=== PATIENT | female | born 1945 | race Two or more races ===

== ENCOUNTER 2019-07-25 12:18 | Inpatient (IN) | payer MEDICARE, OTHER ==
[~2019-07-25] VITALS: Ht 162.6 cm; Wt 103.0 kg
[2019-07-25 12:35] VITALS: BP 154/95
[2019-07-25] MEDS ORDERED: ACETAMINOPHEN325 M1 ORAL (12:40)
[2019-07-25] MEDS ORDERED: B-12 5,000 MCG1 EACH SL (12:40)
[2019-07-25] MEDS ORDERED: OS-CAL 500+D31 EAC1 PO (12:40)
[2019-07-25] MEDS ORDERED: MILK OF MA400 MG/51 ORAL (12:40)
--- NOTE | 2019-07-25 12:40 | NUR ---
ED Nurse Note: Patient was BIBA from [facility] due to fever 100.2, and hypertention. 650 Tylenol and 2000 mL of normal saline were given at the facility. Patient was placed on 2L via NC for comphort. Patient presented lethargic, AAO x1, due to Dementia. Patient has even, non-labored breathing,T 100.2, and O2 sat 92% on RA at bed suide.
--- NOTE | 2019-07-25 12:45 | NUR ---
ED Nurse Note: blood specimen collected seent down
[2019-07-25] MEDS ORDERED: Acetaminophen 650 MG SUPP RECTAL ONE (13:15)
[2019-07-25 13:22] LABS: HEMATOCRIT 48.6 % (37.0-47.0); HEMOGLOBIN 16.4 G/DL (12.0-16.0); MEAN CORPUSCULAR VOLUME 84 FL (80-99); PLATELET COUNT 231 K/UL (150-450); RED BLOOD COUNT 5.79 M/UL (4.20-5.40); WHITE BLOOD COUNT 21.4 K/UL (4.8-10.8)
[2019-07-25 13:23] LABS: ANION GAP 10 mmol/L (5-15); BLOOD UREA NITROGEN 19 mg/dL (7-18); CALCIUM 9.3 MG/DL (8.5-10.1); CARBON DIOXIDE 29 MMOL/L (21-32); CHLORIDE 102 MMOL/L (98-107); CREATININE 1.2 MG/DL (0.55-1.30); POTASSIUM 3.9 MMOL/L (3.5-5.1); SODIUM 141 MMOL/L (136-145)
[2019-07-25 13:34] LABS: ALANINE AMINOTRANSFERASE 23 U/L (12-78); ALBUMIN 3.7 G/DL (3.4-5.0); ALBUMIN/GLOBULIN RATIO 0.9 (1.0-2.7); ALKALINE PHOSPHATASE 127 U/L (46-116); ASPARTATE AMINO TRANSFERASE 17 U/L (15-37); BILIRUBIN,TOTAL 0.5 MG/DL (0.2-1.0)
[2019-07-25] MEDS ORDERED: Azithromycin 500 MG in NS 275 ML IV ONE (13:45)
[2019-07-25] MEDS ORDERED: Cefepime HCl 1 GM in D5W 55 ML IVPB ONE (13:45)
[2019-07-25 14:01] LABS: APPEARANCE,URINE SLIGHTLY CLOUDY; BILIRUBIN, URINE NEGATIVE (NEGATIVE); COLOR,URINE PALE YELLOW; GLUCOSE, URINE (UA) NEGATIVE (NEGATIVE); KETONES,URINE NEGATIVE (NEGATIVE); LEUKOCYTE ESTERASE ,URINE 1+ (NEGATIVE); NITRITE,URINE POSITIVE (NEGATIVE); PH,URINE 7 (4.5-8.0); PROTEIN,URINE 2+ (NEGATIVE); UROBILINOGEN,URINE NORMAL MG/DL (0.0-1.0)
--- NOTE | 2019-07-25 14:13 | Diagnostic Imaging Report ---
EXAM: XR Chest, 1 View CLINICAL HISTORY: SOB TECHNIQUE: Frontal view of the chest. COMPARISON: No relevant prior studies available. FINDINGS: There is pulmonary vascular congestion and suspected left pleural effusion. Heart is not well assessed due to adjacent opacity in rotation, but may be mildly enlarged. Heavily calcified aorta. Chronic right rib deformities. No pneumothorax. IMPRESSION: Pulmonary vascular congestion and suspected left pleural effusion.
[2019-07-25] MEDS ORDERED: levETIRAcetam 1,000mg/NS100ml 100 ML IVPB ONE (14:15)
[2019-07-25] MEDS ORDERED: LORazepam Inj 2mg/ml 1ml IV ONE (14:15)
--- NOTE | 2019-07-25 14:30 | Emergency Room Report ---
History of Present Illness General Chief Complaint: Fever Source: Patient, Medical Record, EMS Present Illness HPI 74-year-old female presents ED for evaluation. Brought in by EMS from [facility] facility. Had fever today. BP also elevated. Denies chest pain. EMS patient also appeared short of breath O2 sats were low 90s. Placed on oxygen for comfort. No other aggravating relieving factors. Denies any other associated symptoms Allergies: Coded Allergies: No Known Allergies (Unverified , 07/25/19) Patient History Past Medical History: none Past Surgical History: none Pertinent Family History: none Social History: Denies: smoking, alcohol use, drug use Now: No Immunizations: UTD Reviewed Nursing Documentation: PMH: Agreed; PSxH: Agreed Review of Systems All Other Systems: negative except mentioned in HPI Physical Exam Vital Signs Date Time Temp Pulse Resp B/P (MAP) Pulse Ox O2 Delivery O2 Flow Rate FiO2 07/25/19 12:18 100.2 118 16 154/95 (114) 98 Nasal Cannula 4.0 Sp02 EP Interpretation: reviewed, normal General Appearance: alert, GCS 15, non-toxic, mild distress Head: normocephalic, atraumatic Eyes: bilateral eye normal inspection, bilateral eye PERRL ENT: hearing grossly normal, normal pharynx, no angioedema, normal voice Neck: full range of motion, supple/symm/no masses Respiratory: chest non-tender, crackles, speaking full sentences Cardiovascular #1: regular rate, rhythm, no edema Cardiovascular #2: 2+ carotid (R), 2+ carotid (L), 2+ radial (R), 2+ radial (L) , 2+ dorsalis pedis (R), 2+ dorsalis pedis (L) Gastrointestinal: normal bowel sounds, non tender, soft, non-distended, no guarding, no rebound Rectal: deferred Genitourinary: normal inspection, no CVA tenderness Musculoskeletal: back normal, normal range of motion, gait/station normal, non- tender Neurologic: alert, motor strength/tone normal, oriented x3, sensory intact, responsive, speech normal Psychiatric: judgement/insight normal, memory normal, mood/affect normal, no suicidal/homicidal ideation Reflexes: 3+ bicep (R), 3+ bicep (L), 3+ tricep (R), 3+ tricep (L), 3+ knee (R) , 3+ knee (L) Skin: other - see nursing notes Lymphatic: no adenopathy Medical Decision Making Diagnostic Impression: Primary Impression: SOB (shortness of breath) Additional Impressions: Pleural effusion Fever Qualified Codes: R50.9 - Fever, unspecified UTI (urinary tract infection) Qualified Codes: N39.0 - Urinary tract infection, site not specified ER Course Hospital Course 74 yo F presents with SOB, fever from SNF Differential diagnoses include: Pneumonia, CHF exacerbation, pneumothorax, fluid overload Clinical course Patient placed on stretcher. On registered nurse cardiac with hypoxia on room air. After initial history and physical, I ordered nasal cannula. I ordered labs, IV fluids, EKG, chest x-ray, blood cultures, UA. Patient placed on nasal cannula with O2 saturation improving Labs - leukocytosis noted, hemoglobin/hematocrit stable, electrolytes okay, lactate okay, troponins negative, UA + bacteria CXR - L sided pleural effsuion EKG - sinus tachycardia no acute ischemic changes interpreted by me given broad spectrum abx. patient remains comfortable on oxygen Case discussed with Dr. Driver and he agreed to the patient to his service for further care and support I feel this is a highly complex case requiring extensive working including EKG/ Rhythm strip, Xray/CT/US, Blood/urine lab work, repeat exams while in ED, and administration of strong opiates/narcotics for pain control, admission to hospital or close patient follow up. Diagnosis - SOB, pleural efusion, Fever, UTI Patient admitted to telemetry in serious condition Labs Test 07/25/19 12:50 07/25/19 13:40 07/26/19 05:58 07/26/19 06:09 White Blood Count 21.4 K/UL (4.8-10.8) 13.0 K/UL (4.8-10.8) Red Blood Count 5.79 M/UL (4.20-5.40) 5.08 M/UL (4.20-5.40) Hemoglobin 16.4 G/DL (12.0-16.0) 14.4 G/DL (12.0-16.0) Hematocrit 48.6 % (37.0-47.0) 42.4 % (37.0-47.0) Mean Corpuscular Volume 84 FL (80-99) 84 FL (80-99) Mean Corpuscular Hemoglobin 28.4 PG (27.0-31.0) 28.3 PG (27.0-31.0) Mean Corpuscular Hemoglobin Concent 33.8 G/DL (32.0-36.0) 33.8 G/DL (32.0-36.0) Red Cell Distribution Width 13.0 % (11.6-14.8) 13.2 % (11.6-14.8) Platelet Count 231 K/UL (150-450) 193 K/UL (150-450) Mean Platelet Volume 7.2 FL (6.5-10.1) 6.4 FL (6.5-10.1) Neutrophils (%) (Auto) % (45.0-75.0) 83.7 % (45.0-75.0) Lymphocytes (%) (Auto) % (20.0-45.0) 10.5 % (20.0-45.0) Monocytes (%) (Auto) % (1.0-10.0) 5.3 % (1.0-10.0) Eosinophils (%) (Auto) % (0.0-3.0) 0.1 % (0.0-3.0) Basophils (%) (Auto) % (0.0-2.0) 0.4 % (0.0-2.0) Differential Total Cells Counted 100 Neutrophils % (Manual) 89 % (45-75) Lymphocytes % (Manual) 6 % (20-45) Monocytes % (Manual) 5 % (1-10) Eosinophils % (Manual) 0 % (0-3) Basophils % (Manual) 0 % (0-2) Band Neutrophils 0 % (0-8) Platelet Estimate Adequate Platelet Morphology Normal Red Blood Cell Morphology Normal Sodium Level 141 MMOL/L (136-145) 141 MMOL/L (136-145) Potassium Level 3.9 MMOL/L (3.5-5.1) 3.4 MMOL/L (3.5-5.1) Chloride Level 102 MMOL/L (98-107) 107 MMOL/L (98-107) Carbon Dioxide Level 29 MMOL/L (21-32) 26 MMOL/L (21-32) Anion Gap 10 mmol/L (5-15) 8 mmol/L (5-15) Blood Urea Nitrogen 19 mg/dL (7-18) 21 mg/dL (7-18) Creatinine 1.2 MG/DL (0.55-1.30) 0.9 MG/DL (0.55-1.30) Estimat Glomerular Filtration Rate mL/min (>60) mL/min (>60) Glucose Level 144 MG/DL (74-106) 106 MG/DL (74-106) Lactic Acid Level 1.60 mmol/L (0.4-2.0) Calcium Level 9.3 MG/DL (8.5-10.1) 8.6 MG/DL (8.5-10.1) Total Bilirubin 0.5 MG/DL (0.2-1.0) 0.6 MG/DL (0.2-1.0) Aspartate Amino Transf (AST/SGOT) 17 U/L (15-37) 15 U/L (15-37) Alanine Aminotransferase (ALT/SGPT) 23 U/L (12-78) 20 U/L (12-78) Alkaline Phosphatase 127 U/L (46-116) 96 U/L (46-116) Troponin I 0.039 ng/mL (0.000-0.056) Pro-B-Type Natriuretic Peptide 688 pg/mL (0-125) Total Protein 8.0 G/DL (6.4-8.2) 6.8 G/DL (6.4-8.2) Albumin 3.7 G/DL (3.4-5.0) 2.8 G/DL (3.4-5.0) Globulin 4.3 g/dL 4.0 g/dL Albumin/Globulin Ratio 0.9 (1.0-2.7) 0.7 (1.0-2.7) Urine Color Pale yellow Yellow Urine Appearance Slightly cloudy Clear Urine pH 7 (4.5-8.0) 5 (4.5-8.0) Urine Specific [place] 1.010 (1.005-1.035) 1.020 (1.005-1.035) Urine Protein 2+ (NEGATIVE) 2+ (NEGATIVE) Urine Glucose (UA) Negative (NEGATIVE) Negative (NEGATIVE) Urine Ketones Negative (NEGATIVE) 1+ (NEGATIVE) Urine Blood 5+ (NEGATIVE) 5+ (NEGATIVE) Urine Nitrite Positive (NEGATIVE) Negative (NEGATIVE) Urine Bilirubin Negative (NEGATIVE) Negative (NEGATIVE) Urine Urobilinogen Normal MG/DL (0.0-1.0) Normal MG/DL (0.0-1.0) Urine Leukocyte Esterase 1+ (NEGATIVE) 2+ (NEGATIVE) Urine RBC 5-10 /HPF (0 - 2) 5-10 /HPF (0 - 2) Urine WBC 5-10 /HPF (0 - 2) 5-10 /HPF (0 - 2) Urine Squamous Epithelial Cells Few /LPF (NONE/OCC) Few /LPF (NONE/OCC) Urine Bacteria Many /HPF (NONE) Few /HPF (NONE) EKG Diagnostic Results Rate: tachycardiac Rhythm: NSR ST Segments: no acute changes ASA given to the pt in ED: No Rhythm Strip Diag. Results EP Interpretation: yes Rhythm: NSR, no PVC's, no ectopy Chest X-Ray Diagnostic Results Chest X-Ray Diagnostic Results : Chest X-Ray Ordered: Yes # of Views/Limited/Complete: 1 View Indication: Shortness of Breath EP Interpretation: Yes Interpretation: no pneumothorax, other - L sided pleural effusion Impression: Other - pleural effusion Electronically Signed by: Electronically signed by Vimal Novak MD Last Vital Signs Date Time Temp Pulse Resp B/P (MAP) Pulse Ox O2 Delivery O2 Flow Rate FiO2 07/25/19 13:44 99.2 07/25/19 12:35 118 16 Nasal Cannula 2.0 07/25/19 12:35 154/95 98 Status: improved Disposition: ADMITTED INPATIENT Condition: Serious Referrals: Jose Driver DO (PCP) Vimal Novak MD Jul 25, 2019 14:30
[2019-07-25 14:31] VITALS: BP 144/80
[2019-07-25 15:16] VITALS: BP 137/87
--- NOTE | 2019-07-25 16:55 | NUR ---
ED Nurse Note: Patient was transfered to tele unit due to high fever, pleural efusion. Patient was transfered to the unit via gurney, by ACLS protocol, with all belongings. Patient AAO x2, due to dementia, VSS at this time.
--- NOTE | 2019-07-25 17:00 | NUR ---
NURSE NOTES: Report received from ARJUN Wisdom. Pt. came to the floor via gurney from ER. In 2L NC. AOx1. Complains of mid chest pain 10/19. IV flushed, SL. Belongings checked with Pt. and Nurse. Blue shirt, 2 purses and 16 dollars and 50 cents counted, signed and filed. Bed on lowest position, side rails upx2, brakes engaged, alarm on. Call light left within easy reach.
[2019-07-25] MEDS ORDERED: Miralax 17gm pkt ORAL PRN (17:15)
[2019-07-25] MEDS ORDERED: Morphine Sulfate 2mg/ml Inj(IV/IM USE ONLY) IVP PRN (17:15)
[2019-07-25] MEDS ORDERED: Albuterol/Ipratropium 3ml neb HHN PRN (17:15)
[2019-07-25] MEDS ORDERED: Vancomycin 1.25gm/NS Premix IVPB ONE (18:30)
[2019-07-25 20:00] VITALS: BP 114/61
--- NOTE | 2019-07-25 20:10 | NUR ---
NURSE NOTES: Received hand written report from ARJUN Mendez. Patient in bed resting. Patient confused oriented x1. Patient have to be frequently oriented. Can follow simple commands. No complaints of chest pain, no SOB noted. Patient on NC @2L saturating well. Will continue to monitor.
[2019-07-25] MEDS ORDERED: Cefepime HCl 2 GM in D5W 110 ML IV SCH (21:00)
[2019-07-25] MEDS: Heparin 5000 units/ml inj SUBQ SCH (21:52)
[2019-07-26] VITALS: BP 134/78
[2019-07-26] MEDS ORDERED: Vancomycin 1 GM in D5W 275 ML IV SCH (00:30)
[2019-07-26 07:04] LABS: APPEARANCE,URINE CLEAR; BILIRUBIN, URINE NEGATIVE (NEGATIVE); GLUCOSE, URINE (UA) NEGATIVE (NEGATIVE); KETONES,URINE 1+ (NEGATIVE); LEUKOCYTE ESTERASE ,URINE 2+ (NEGATIVE); NITRITE,URINE NEGATIVE (NEGATIVE); PH,URINE 5 (4.5-8.0); PROTEIN,URINE 2+ (NEGATIVE); UROBILINOGEN,URINE NORMAL MG/DL (0.0-1.0)
--- NOTE | 2019-07-26 07:20 | NUR ---
NURSE NOTES: Received report from ARJUN Delatorre. Pt. sleeping comfortably. In 2L NC. No S/S of distress noticed. Floor made free of clutter. Whiteboard updated. Bed on lowest position, side rails upx2, brakes engaged, alarm on. Call light within easy reach.
--- NOTE | 2019-07-26 07:32 | NUR ---
HAND-OFF: Report given to ARJUN Reeder. Patient in bed sleeping. Stable at Hand-off.
[2019-07-26 07:33] LABS: COLOR,URINE YELLOW
[2019-07-26 08:00] VITALS: BP 129/80
[2019-07-26 08:13] LABS: BASOPHILS % (AUTO) 0.4 % (0.0-2.0); EOSINOPHILS % (AUTO) 0.1 % (0.0-3.0); HEMATOCRIT 42.4 % (37.0-47.0); HEMOGLOBIN 14.4 G/DL (12.0-16.0); LYMPHOCYTES % (AUTO) 10.5 % (20.0-45.0); MEAN CORPUSCULAR VOLUME 84 FL (80-99); MONOCYTES % (AUTO) 5.3 % (1.0-10.0); NEUTROPHILS % (AUTO) 83.7 % (45.0-75.0); PLATELET COUNT 193 K/UL (150-450); RED BLOOD COUNT 5.08 M/UL (4.20-5.40); RED CELL DISTRIBUTION WIDTH 13.2 % (11.6-14.8)
--- NOTE | 2019-07-26 08:25 | Consultation ---
History of Present Illness General Chief Complaint: Fever Present Illness Allergies: Coded Allergies: No Known Allergies (Unverified , 07/25/19) Medication History Scheduled Magnesium Hydroxide* (Milk Of Magnesia*), 30 ML ORAL DAILY, (Reported) Scheduled PRN Acetaminophen* (Acetaminophen 325MG Tablet*), 650 MG ORAL Q4H PRN for Pain Scale (3-5), (Reported) Miscellaneous Medications Calcium Carbonate/Vitamin D3 (Os-Surendra 500+D3 Caplet), 1 EACH PO, (Reported) Cyanocobalamin/Cobamamide (B-12 5,000 Mcg Sublingual Tab), 2 EACH SL, (Reported) Patient History Healthcare decision maker Resuscitation status Full Code Advanced Directive on File Physical Exam Last 24 Hour Vital Signs Date Time Temp Pulse Resp B/P (MAP) Pulse Ox O2 Delivery O2 Flow Rate FiO2 07/26/19 04:00 106 07/26/19 00:00 109 07/26/19 00:00 96.5 111 21 134/78 (96) 94 07/25/19 21:00 Nasal Cannula 2.0 07/25/19 20:00 96.8 110 20 114/61 (78) 94 07/25/19 20:00 102 07/25/19 18:40 110 20 94 Nasal Cannula 2.0 28 07/25/19 18:40 94 Nasal Cannula 2.0 28 07/25/19 17:07 Nasal Cannula 2.0 07/25/19 16:55 98.9 108 15 137/87 100 Nasal Cannula 2.0 07/25/19 15:16 98.9 108 15 137/87 100 Nasal Cannula 2.0 07/25/19 14:31 99.2 115 16 144/80 98 Nasal Cannula 4.0 07/25/19 13:44 99.2 07/25/19 12:35 118 16 Nasal Cannula 2.0 07/25/19 12:35 100.2 16 154/95 98 Nasal Cannula 4.0 07/25/19 12:18 100.2 118 16 154/95 (114) 98 Nasal Cannula 4.0 Intake and Output 07/25/19 07/26/19 19:00 07:00 Intake Total 220 ml Output Total 850 ml 500 ml Balance -850 ml -280 ml Intake IV Total 220 ml Output Urine Total 850 ml 500 ml # Bowel Movements 2 Laboratory Tests Test 07/25/19 12:50 07/25/19 13:40 07/26/19 05:58 07/26/19 06:09 White Blood Count 21.4 K/UL (4.8-10.8) H 13.0 K/UL (4.8-10.8) H Red Blood Count 5.79 M/UL (4.20-5.40) H 5.08 M/UL (4.20-5.40) Hemoglobin 16.4 G/DL (12.0-16.0) H 14.4 G/DL (12.0-16.0) Hematocrit 48.6 % (37.0-47.0) H 42.4 % (37.0-47.0) Mean Corpuscular Volume 84 FL (80-99) 84 FL (80-99) Mean Corpuscular Hemoglobin 28.4 PG (27.0-31.0) 28.3 PG (27.0-31.0) Mean Corpuscular Hemoglobin Concent 33.8 G/DL (32.0-36.0) 33.8 G/DL (32.0-36.0) Red Cell Distribution Width 13.0 % (11.6-14.8) 13.2 % (11.6-14.8) Platelet Count 231 K/UL (150-450) 193 K/UL (150-450) Mean Platelet Volume 7.2 FL (6.5-10.1) 6.4 FL (6.5-10.1) L Neutrophils (%) (Auto) % (45.0-75.0) 83.7 % (45.0-75.0) H Lymphocytes (%) (Auto) % (20.0-45.0) 10.5 % (20.0-45.0) L Monocytes (%) (Auto) % (1.0-10.0) 5.3 % (1.0-10.0) Eosinophils (%) (Auto) % (0.0-3.0) 0.1 % (0.0-3.0) Basophils (%) (Auto) % (0.0-2.0) 0.4 % (0.0-2.0) Differential Total Cells Counted 100 Neutrophils % (Manual) 89 % (45-75) H Lymphocytes % (Manual) 6 % (20-45) L Monocytes % (Manual) 5 % (1-10) Eosinophils % (Manual) 0 % (0-3) Basophils % (Manual) 0 % (0-2) Band Neutrophils 0 % (0-8) Platelet Estimate Adequate Platelet Morphology Normal Red Blood Cell Morphology Normal Sodium Level 141 MMOL/L (136-145) Pending Potassium Level 3.9 MMOL/L (3.5-5.1) Pending Chloride Level 102 MMOL/L (98-107) Pending Carbon Dioxide Level 29 MMOL/L (21-32) Pending Anion Gap 10 mmol/L (5-15) Blood Urea Nitrogen 19 mg/dL (7-18) H Pending Creatinine 1.2 MG/DL (0.55-1.30) Pending Estimat Glomerular Filtration Rate mL/min (>60) Pending Glucose Level 144 MG/DL (74-106) H Pending Lactic Acid Level 1.60 mmol/L (0.4-2.0) Calcium Level 9.3 MG/DL (8.5-10.1) Pending Total Bilirubin 0.5 MG/DL (0.2-1.0) Pending Aspartate Amino Transf (AST/SGOT) 17 U/L (15-37) Pending Alanine Aminotransferase (ALT/SGPT) 23 U/L (12-78) Pending Alkaline Phosphatase 127 U/L (46-116) H Pending Troponin I 0.039 ng/mL (0.000-0.056) Pro-B-Type Natriuretic Peptide 688 pg/mL (0-125) H Total Protein 8.0 G/DL (6.4-8.2) Pending Albumin 3.7 G/DL (3.4-5.0) Pending Globulin 4.3 g/dL Pending Albumin/Globulin Ratio 0.9 (1.0-2.7) L Urine Color Pale yellow Yellow Urine Appearance Slightly cloudy Clear Urine pH 7 (4.5-8.0) 5 (4.5-8.0) Urine Specific [place] 1.010 (1.005-1.035) 1.020 (1.005-1.035) Urine Protein 2+ (NEGATIVE) H 2+ (NEGATIVE) H Urine Glucose (UA) Negative (NEGATIVE) Negative (NEGATIVE) Urine Ketones Negative (NEGATIVE) 1+ (NEGATIVE) H Urine Blood 5+ (NEGATIVE) H 5+ (NEGATIVE) H Urine Nitrite Positive (NEGATIVE) H Negative (NEGATIVE) Urine Bilirubin Negative (NEGATIVE) Negative (NEGATIVE) Urine Urobilinogen Normal MG/DL (0.0-1.0) Normal MG/DL (0.0-1.0) Urine Leukocyte Esterase 1+ (NEGATIVE) H 2+ (NEGATIVE) H Urine RBC 5-10 /HPF (0 - 2) H 5-10 /HPF (0 - 2) H Urine WBC 5-10 /HPF (0 - 2) H 5-10 /HPF (0 - 2) H Urine Squamous Epithelial Cells Few /LPF (NONE/OCC) Few /LPF (NONE/OCC) Urine Bacteria Many /HPF (NONE) H Few /HPF (NONE) Microbiology Date/Time Source Procedure Growth Status 07/25/19 12:50 Nasal Nares - Final Complete 07/25/19 12:50 Nasal Nares - Final Complete 07/25/19 13:30 Rectum Received Height (Feet): 5 Height (Inches): 4.00 Weight (Pounds): 130 Medications Current Medications Medications (Trade) Dose Ordered Sig/Katelynn Route PRN Reason Start Time Stop Time Status Last Admin Dose Admin Acetaminophen (Tylenol) 650 mg Q4H PRN ORAL T>100.5 07/25/19 17:15 08/24/19 17:14 Albuterol/ Ipratropium (Albuterol/ Ipratropium) 3 ml Q4H PRN HHN Shortness of Breath 07/25/19 17:15 07/30/19 17:14 Cefepime HCl 2 gm/ Dextrose 110 ml @ 220 mls/hr Q24H IV 07/25/19 21:00 08/01/19 20:59 07/25/19 21:50 Heparin Sodium (Porcine) (Heparin 5000 units/ml) 5,000 units EVERY 12 HOURS SUBQ 07/25/19 21:00 08/24/19 20:59 07/25/19 21:52 Morphine Sulfate (Morphine Sulfate) 2 mg Q4H PRN IVP PAIN 4-10 07/25/19 17:15 08/01/19 17:14 Ondansetron HCl (Zofran) 4 mg Q6H PRN IVP Nausea & Vomiting 07/25/19 17:15 08/24/19 17:14 Polyethylene Glycol (Miralax) 17 gm DAILYPRN PRN ORAL Constipation 07/25/19 17:15 08/24/19 17:14 Temazepam (Restoril) 15 mg HSPRN PRN ORAL Insomnia 07/25/19 21:00 08/01/19 20:59 Vancomycin HCl (Vanco rx to dose) 1 ea DAILY PRN MISC . 07/25/19 17:30 08/24/19 17:29 Vancomycin HCl 750 mg/Sodium Chloride 275 ml @ 183.333 mls/hr Q24H IVPB 07/26/19 18:00 07/31/19 17:59 Assessment/Plan Problem List: (1) Sepsis ICD Codes: A41.9 - Sepsis, unspecified organism SNOMED: 00250755 (2) Pleural effusion ICD Codes: J90 - Pleural effusion, not elsewhere classified SNOMED: 35335923 (3) History of cerebrovascular accident ICD Codes: Z86.73 - Personal history of transient ischemic attack (TIA), and cerebral infarction without residual deficits SNOMED: 066755545 (4) Alzheimer's dementia ICD Codes: G30.9 - Alzheimer's disease, unspecified; F02.80 - Dementia in other diseases classified elsewhere without behavioral disturbance SNOMED: 11292933 (5) Past use of tobacco ICD Codes: Z87.891 - Personal history of nicotine dependence SNOMED: 622449785 Assessment/Plan: boyd culture iv abx check wbc electrolytes US of chest respiratory treatment symptomatic treatment dvt prophylaxis. Alec Glasgow MD Jul 26, 2019 08:25
[2019-07-26 08:34] LABS: ALANINE AMINOTRANSFERASE 20 U/L (12-78); ALBUMIN 2.8 G/DL (3.4-5.0); ALBUMIN/GLOBULIN RATIO 0.7 (1.0-2.7); ALKALINE PHOSPHATASE 96 U/L (46-116); ANION GAP 8 mmol/L (5-15); ASPARTATE AMINO TRANSFERASE 15 U/L (15-37); BILIRUBIN,TOTAL 0.6 MG/DL (0.2-1.0); BLOOD UREA NITROGEN 21 mg/dL (7-18); CALCIUM 8.6 MG/DL (8.5-10.1); CARBON DIOXIDE 26 MMOL/L (21-32); CHLORIDE 107 MMOL/L (98-107); CREATININE 0.9 MG/DL (0.55-1.30); POTASSIUM 3.4 MMOL/L (3.5-5.1); SODIUM 141 MMOL/L (136-145)
[2019-07-26] MEDS: Heparin 5000 units/ml inj SUBQ SCH ×2 (08:44→20:56)
--- NOTE | 2019-07-26 13:07 | Consultation ---
History of Present Illness General Date patient seen: Jul 26, 2019 Chief Complaint: Fever Present Illness HPI 74 y/o F with hx of SNF resident presented to ED on 07/25 with fever, elevated blood pressure, Sat in the low 90s Denied chest pain Allergies: Coded Allergies: No Known Allergies (Unverified , 07/25/19) Medication History Scheduled Magnesium Hydroxide* (Milk Of Magnesia*), 30 ML ORAL DAILY, (Reported) Scheduled PRN Acetaminophen* (Acetaminophen 325MG Tablet*), 650 MG ORAL Q4H PRN for Pain Scale (3-5), (Reported) Miscellaneous Medications Calcium Carbonate/Vitamin D3 (Os-Surendra 500+D3 Caplet), 1 EACH PO, (Reported) Cyanocobalamin/Cobamamide (B-12 5,000 Mcg Sublingual Tab), 2 EACH SL, (Reported) Patient History Healthcare decision maker Resuscitation status Full Code Advanced Directive on File Patient History Narrative Pmhx: as above Shx: Denies: smoking, alcohol use, drug use Fhx: non contributory Review of Systems All Other Systems: negative except mentioned in HPI Physical Exam Physical Exam Narrative General Appearance: alert, mild distress Head: normocephalic, atraumatic Eyes: bilateral eye normal inspection, bilateral eye PERRL ENT: hearing grossly normal, normal pharynx, no angioedema, normal voice Neck: full range of motion, supple/symm/no masses Respiratory: chest non-tender, crackles, speaking full sentences Cardiovascular : regular rate, rhythm, no edema Gastrointestinal: normal bowel sounds, non tender, soft, non-distended, no guarding, no rebound Last 24 Hour Vital Signs Date Time Temp Pulse Resp B/P (MAP) Pulse Ox O2 Delivery O2 Flow Rate FiO2 07/26/19 09:00 Nasal Cannula 2.0 07/26/19 08:02 94 Nasal Cannula 2.0 28 07/26/19 08:02 106 20 95 Nasal Cannula 2.0 28 07/26/19 08:00 97.9 107 20 129/80 (96) 94 07/26/19 08:00 102 07/26/19 04:00 106 07/26/19 00:00 109 07/26/19 00:00 96.5 111 21 134/78 (96) 94 07/25/19 21:00 Nasal Cannula 2.0 12/14/19 20:00 96.8 110 20 114/61 (78) 94 07/25/19 20:00 102 07/25/19 18:40 110 20 94 Nasal Cannula 2.0 28 07/25/19 18:40 94 Nasal Cannula 2.0 28 07/25/19 17:07 Nasal Cannula 2.0 07/25/19 16:55 98.9 108 15 137/87 100 Nasal Cannula 2.0 07/25/19 15:16 98.9 108 15 137/87 100 Nasal Cannula 2.0 07/25/19 14:31 99.2 115 16 144/80 98 Nasal Cannula 4.0 07/25/19 13:44 99.2 Intake and Output 07/25/19 07/26/19 19:00 07:00 Intake Total 220 ml Output Total 850 ml 500 ml Balance -850 ml -280 ml Intake IV Total 220 ml Output Urine Total 850 ml 500 ml # Bowel Movements 2 Laboratory Tests Test 07/25/19 13:40 07/26/19 05:58 07/26/19 06:09 Urine Color Pale yellow Yellow Urine Appearance Slightly cloudy Clear Urine pH 7 (4.5-8.0) 5 (4.5-8.0) Urine Specific [place] 1.010 (1.005-1.035) 1.020 (1.005-1.035) Urine Protein 2+ (NEGATIVE) H 2+ (NEGATIVE) H Urine Glucose (UA) Negative (NEGATIVE) Negative (NEGATIVE) Urine Ketones Negative (NEGATIVE) 1+ (NEGATIVE) H Urine Blood 5+ (NEGATIVE) H 5+ (NEGATIVE) H Urine Nitrite Positive (NEGATIVE) H Negative (NEGATIVE) Urine Bilirubin Negative (NEGATIVE) Negative (NEGATIVE) Urine Urobilinogen Normal MG/DL (0.0-1.0) Normal MG/DL (0.0-1.0) Urine Leukocyte Esterase 1+ (NEGATIVE) H 2+ (NEGATIVE) H Urine RBC 5-10 /HPF (0 - 2) H 5-10 /HPF (0 - 2) H Urine WBC 5-10 /HPF (0 - 2) H 5-10 /HPF (0 - 2) H Urine Squamous Epithelial Cells Few /LPF (NONE/OCC) Few /LPF (NONE/OCC) Urine Bacteria Many /HPF (NONE) H Few /HPF (NONE) White Blood Count 13.0 K/UL (4.8-10.8) H Red Blood Count 5.08 M/UL (4.20-5.40) Hemoglobin 14.4 G/DL (12.0-16.0) Hematocrit 42.4 % (37.0-47.0) Mean Corpuscular Volume 84 FL (80-99) Mean Corpuscular Hemoglobin 28.3 PG (27.0-31.0) Mean Corpuscular Hemoglobin Concent 33.8 G/DL (32.0-36.0) Red Cell Distribution Width 13.2 % (11.6-14.8) Platelet Count 193 K/UL (150-450) Mean Platelet Volume 6.4 FL (6.5-10.1) L Neutrophils (%) (Auto) 83.7 % (45.0-75.0) H Lymphocytes (%) (Auto) 10.5 % (20.0-45.0) L Monocytes (%) (Auto) 5.3 % (1.0-10.0) Eosinophils (%) (Auto) 0.1 % (0.0-3.0) Basophils (%) (Auto) 0.4 % (0.0-2.0) Sodium Level 141 MMOL/L (136-145) Potassium Level 3.4 MMOL/L (3.5-5.1) L Chloride Level 107 MMOL/L (98-107) Carbon Dioxide Level 26 MMOL/L (21-32) Anion Gap 8 mmol/L (5-15) Blood Urea Nitrogen 21 mg/dL (7-18) H Creatinine 0.9 MG/DL (0.55-1.30) Estimat Glomerular Filtration Rate mL/min (>60) Glucose Level 106 MG/DL (74-106) Calcium Level 8.6 MG/DL (8.5-10.1) Total Bilirubin 0.6 MG/DL (0.2-1.0) Aspartate Amino Transf (AST/SGOT) 15 U/L (15-37) Alanine Aminotransferase (ALT/SGPT) 20 U/L (12-78) Alkaline Phosphatase 96 U/L (46-116) Total Protein 6.8 G/DL (6.4-8.2) Albumin 2.8 G/DL (3.4-5.0) L Globulin 4.0 g/dL Albumin/Globulin Ratio 0.7 (1.0-2.7) L Microbiology Date/Time Source Procedure Growth Status 07/25/19 13:40 Urine,Clean Catch Urine Culture - Preliminary Gram Negative Bacillus 1 Resulted 07/25/19 13:30 Rectum Received Height (Feet): 5 Height (Inches): 4.00 Weight (Pounds): 130 Medications Current Medications Medications (Trade) Dose Ordered Sig/Katelynn Route PRN Reason Start Time Stop Time Status Last Admin Dose Admin Acetaminophen (Tylenol) 650 mg Q4H PRN ORAL T>100.5 07/25/19 17:15 08/24/19 17:14 Albuterol/ Ipratropium (Albuterol/ Ipratropium) 3 ml Q4H PRN HHN Shortness of Breath 07/25/19 17:15 07/30/19 17:14 Cefepime HCl 2 gm/ Dextrose 110 ml @ 220 mls/hr Q24H IV 07/25/19 21:00 08/01/19 20:59 07/25/19 21:50 Heparin Sodium (Porcine) (Heparin 5000 units/ml) 5,000 units EVERY 12 HOURS SUBQ 07/25/19 21:00 08/24/19 20:59 07/26/19 08:44 Morphine Sulfate (Morphine Sulfate) 2 mg Q4H PRN IVP PAIN 4-10 07/25/19 17:15 08/01/19 17:14 Ondansetron HCl (Zofran) 4 mg Q6H PRN IVP Nausea & Vomiting 07/25/19 17:15 08/24/19 17:14 Polyethylene Glycol (Miralax) 17 gm DAILYPRN PRN ORAL Constipation 07/25/19 17:15 08/24/19 17:14 Temazepam (Restoril) 15 mg HSPRN PRN ORAL Insomnia 07/25/19 21:00 08/01/19 20:59 Vancomycin HCl (Vanco rx to dose) 1 ea DAILY PRN MISC . 07/25/19 17:30 08/24/19 17:29 Vancomycin HCl 750 mg/Sodium Chloride 275 ml @ 183.333 mls/hr Q24H IVPB 07/26/19 18:00 07/31/19 17:59 Assessment/Plan Assessment/Plan: Abx: IV Vancomycin 07/25- Cefepime 07/25- Azithromycin x1 07/25 Assessment: Sepsis UTI -u/a wbc 15-20, nit +, leuk +1; ucx >100k GNR Fever; improving Leukocytosis, improving -influenza sc neg -CXR: Pulmonary vascular congestion and suspected left pleural effusion. -Bcx p TODD, improving [facility] resident Plan: -Continue empiric IV Vancomycin #2 pending Bcx -Continue empiric Cefepime #2 pending ucx -f/u cx -Monitor CBC/CMP, temperatures -aspiration precautions Thank you for this consultation. Will continue to follow along with you. Discussed with Ernestina Noriega M.D. Jul 26, 2019 13:07
--- NOTE | 2019-07-26 15:15 | History and Physical Report ---
DATE OF ADMISSION: 07/25/2019 DATE AND TIME SEEN: 07/26/2019 at 9 a.m. CONSULTANTS: 1. Felix Kruger M.D. 2. Alec Glasgow M.D. 3. Ruslan Bey M.D. CHIEF COMPLAINT: Weakness, shortness of breath, UTI, sepsis, and hypertension. BRIEF HISTORY: This is a 74-year-old female from [facility], who presented with above-mentioned diagnosis, was admitted for weakness, urinary tract infection, sepsis, hypertensive urgency, chest pain, hypoxia, and leg cellulitis. Currently calm in bed, slight short of breath. No complaint. REVIEW OF SYSTEMS: No chest pain. Slight short of breath. No nausea, vomiting, or diarrhea. PAST MEDICAL HISTORY: Obesity, history of CVA, Alzheimer's. PAST SURGICAL HISTORY: None. ALLERGIES: Denies. MEDICATIONS: Include vancomycin, cefepime, heparin, temazepam, albuterol, Tylenol, morphine, Zofran, , and lorazepam. SOCIAL HISTORY: Positive smoking. No alcohol. No intravenous drug abuse. FAMILY HISTORY: Noncontributory. PHYSICAL EXAMINATION: GENERAL: Calm in bed, oriented x2, in no acute distress. VITAL SIGNS: Temperature is 97, pulse 107, respirations 20, and blood pressure 129/80. CARDIOVASCULAR: No murmur. LUNGS: Poor air exchange. ABDOMEN: Bowel sounds distant. EXTREMITIES: No cyanosis or edema. LABORATORY AND DIAGNOSTIC DATA: Labs at this time show white count 13, otherwise CBC is normal. BMP shows potassium 3.4, BUN 21, albumin 2.8, otherwise normal. Urinalysis shows 2+ leukocyte esterase. ASSESSMENT: 1. Urinary tract infection. 2. Sepsis. 3. Hypertensive urgency. 4. Chest pain. 5. Malnutrition. 6. Hypoxia. 7. Leg cellulitis. 8. CVA. 9. Alzheimer's. PLAN: 1. O2 and pulmonary treatment. 2. Antibiotics per Infectious Disease. 3. Blood pressure and pain control. 4. Dietary followup. 5. PT and dietary evaluation. 6. Check labs in the morning. 7. We will continue to follow this patient. 8. Cardiology, Pulmonary and ID followup. Jose Driver D.O. DR: JACI JOB#: [id number] CC:
--- NOTE | 2019-07-26 17:18 | NUR ---
NURSE NOTES: Left a note to Dr. Rankin regarding Patients LLE redness.
[2019-07-26] MEDS ORDERED: Vancomycin 750 MG in NS 275 ML IVPB SCH (18:00)
[2019-07-26] MEDS ORDERED: Vancomycin 750mg/NS 275ml IVPB SCH ×2 (18:00)
--- NOTE | 2019-07-26 18:30 | NUR ---
TRANSFER TO FLOOR: Patient transferred to [facility], per Dr Glasgow. Report given to ARJUN Gill. Belongings and medications given to RN. Patient in stable condition. Plan of care endorsed.
--- NOTE | 2019-07-26 18:32 | NUR ---
NURSE NOTES: Received pt from tele, pt awake, A/O x 2-3, calm. denies pain, no SOB noted, belongings with pt, no home meds, ochoa in place, draining clean yellow urine, LLE redness, warm to touch, pts on IV abx, tolerating diet, call light within reach, bed in low position, bed alarm on, notified RT regarding pts needs to be on 2L O2, fall precaution maintained. will continue to monitor.
[2019-07-26] MEDS ORDERED: Albuterol/Ipratropium 3ml neb HHN PRN (19:00)
[2019-07-26] MEDS ORDERED: Morphine Sulfate 2mg/ml Inj(IV/IM USE ONLY) IVP PRN (19:00)
[2019-07-26 20:00] VITALS: BP 130/74
--- NOTE | 2019-07-26 20:00 | NUR ---
NURSE NOTES: Received pt in bed. pt awake, A/O x 2-3 on nasal canula 2ml/min. no s/s of respiratory distress noted. Navarro catheter via gravity, draining clean yellow urine. on LLE redness, warm to touch and notified to call light within reach. bed is the lowest position and alarmed on. will continue to provide plan of care.
[2019-07-26] MEDS ORDERED: Cefepime HCl 2 GM in D5W 110 ML IV SCH (21:00)
[2019-07-27] VITALS: BP 124/86
[2019-07-27 04:00] VITALS: BP 106/68
[2019-07-27 07:23] LABS: BASOPHILS % (AUTO) 0.5 % (0.0-2.0); EOSINOPHILS % (AUTO) 3.1 % (0.0-3.0); HEMATOCRIT 42.7 % (37.0-47.0); HEMOGLOBIN 14.3 G/DL (12.0-16.0); LYMPHOCYTES % (AUTO) 18.7 % (20.0-45.0); MEAN CORPUSCULAR VOLUME 85 FL (80-99); MONOCYTES % (AUTO) 9.2 % (1.0-10.0); NEUTROPHILS % (AUTO) 68.5 % (45.0-75.0); PLATELET COUNT 186 K/UL (150-450); RED BLOOD COUNT 5.05 M/UL (4.20-5.40); RED CELL DISTRIBUTION WIDTH 13.4 % (11.6-14.8); WHITE BLOOD COUNT 7.5 K/UL (4.8-10.8)
--- NOTE | 2019-07-27 07:47 | NUR ---
HAND-OFF: Report given to Dc DÍAZ.
--- NOTE | 2019-07-27 07:59 | NUR ---
NURSE NOTES: Patient awake, alert x2, confused and forget-full; on nasal cannula 2 Liter, no sing of distress and shortness of breath; no sing of chest pain; IV Right For-arm 20G TKO and Left For-Arm. Navarro in place, drains urine; side rails up x2, breaks engaged, bed at lowest position, bed alarm on; call light and bed side table within reach; will keep monitoring.
[2019-07-27 08:00] LABS: ALANINE AMINOTRANSFERASE 20 U/L (12-78); ALBUMIN 2.8 G/DL (3.4-5.0); ALBUMIN/GLOBULIN RATIO 0.7 (1.0-2.7); ALKALINE PHOSPHATASE 93 U/L (46-116); ANION GAP 8 mmol/L (5-15); ASPARTATE AMINO TRANSFERASE 16 U/L (15-37); BILIRUBIN,TOTAL 0.3 MG/DL (0.2-1.0); BLOOD UREA NITROGEN 16 mg/dL (7-18); CALCIUM 8.8 MG/DL (8.5-10.1); CARBON DIOXIDE 27 MMOL/L (21-32); CHLORIDE 107 MMOL/L (98-107); CREATININE 0.8 MG/DL (0.55-1.30); POTASSIUM 3.6 MMOL/L (3.5-5.1); SODIUM 142 MMOL/L (136-145)
[2019-07-27] MEDS: Heparin 5000 units/ml inj SUBQ SCH ×2 (08:24→21:09)
--- NOTE | 2019-07-27 09:26 | General Progress Note ---
Assessment/Plan Problem List: (1) HTN (hypertension) ICD Codes: I10 - Essential (primary) hypertension SNOMED: 60750074 (2) Cellulitis of left ankle ICD Codes: L03.116 - Cellulitis of left lower limb SNOMED: 55467231167852833 (3) History of cerebrovascular accident ICD Codes: Z86.73 - Personal history of transient ischemic attack (TIA), and cerebral infarction without residual deficits SNOMED: 750522121 (4) SOB (shortness of breath) ICD Codes: R06.02 - Shortness of breath SNOMED: 785092804 (5) UTI (urinary tract infection) ICD Codes: N39.0 - Urinary tract infection, site not specified SNOMED: 84862259 Qualifiers: Qualified Codes: N39.0 - Urinary tract infection, site not specified (6) Fever ICD Codes: R50.9 - Fever, unspecified SNOMED: 619747370 Qualifiers: Qualified Codes: R50.9 - Fever, unspecified (7) Pleural effusion ICD Codes: J90 - Pleural effusion, not elsewhere classified SNOMED: 08118241 (8) Alzheimer's dementia ICD Codes: G30.9 - Alzheimer's disease, unspecified; F02.80 - Dementia in other diseases classified elsewhere without behavioral disturbance SNOMED: 08255146 (9) Past use of tobacco ICD Codes: Z87.891 - Personal history of nicotine dependence SNOMED: 005006419 (10) Sepsis ICD Codes: A41.9 - Sepsis, unspecified organism SNOMED: 40604844 Status: unchanged Assessment/Plan: pt diet abx cardio eval cbc bmp am aru eval Subjective Constitutional: Reports: weakness Allergies: Coded Allergies: No Known Allergies (Unverified , 07/25/19) All Systems: reviewed and negative except above Subjective sl sob Objective Last 24 Hour Vital Signs Date Time Temp Pulse Resp B/P (MAP) Pulse Ox O2 Delivery O2 Flow Rate FiO2 07/27/19 04:00 98.6 96 106/68 (81) 07/27/19 00:00 98.3 102 124/86 (99) 07/26/19 21:09 99 20 94 Room Air 21 07/26/19 21:03 94 Room Air 21 07/26/19 21:00 Nasal Cannula 2.0 07/26/19 20:00 98.2 98 130/74 (92) 07/26/19 16:00 88 07/26/19 12:00 81 Intake and Output 07/26/19 07/27/19 19:00 07:00 Intake Total 300 ml 40 ml Output Total 600 ml 800 ml Balance -300 ml -760 ml Intake Oral 300 ml Other 40 ml Output Urine Total 600 ml 800 ml # Voids 1 # Bowel Movements 3 1 Laboratory Tests 07/27/19 06:22: White Blood Count 7.5, Red Blood Count 5.05, Hemoglobin 14.3, Hematocrit 42.7, Mean Corpuscular Volume 85, Mean Corpuscular Hemoglobin 28.3, Mean Corpuscular Hemoglobin Concent 33.4, Red Cell Distribution Width 13.4, Platelet Count 186, Mean Platelet Volume 6.8, Neutrophils (%) (Auto) 68.5, Lymphocytes (%) (Auto) 18.7L, Monocytes (%) (Auto) 9.2, Eosinophils (%) (Auto) 3.1H, Basophils (%) ( Auto) 0.5, Sodium Level 142, Potassium Level 3.6, Chloride Level 107, Carbon Dioxide Level 27, Anion Gap 8, Blood Urea Nitrogen 16, Creatinine 0.8, Estimat Glomerular Filtration Rate , Glucose Level 107H, Calcium Level 8.8, Total Bilirubin 0.3, Aspartate Amino Transf (AST/SGOT) 16, Alanine Aminotransferase ( ALT/SGPT) 20, Alkaline Phosphatase 93, Pro-B-Type Natriuretic Peptide 269H, Total Protein 7.0, Albumin 2.8L, Globulin 4.2, Albumin/Globulin Ratio 0.7L Height (Feet): 5 Height (Inches): 4.00 Weight (Pounds): 130 General Appearance: lethargic EENT: normal ENT inspection Neck: normal alignment Cardiovascular: normal peripheral pulses, normal rate, regular rhythm Respiratory/Chest: chest wall non-tender, lungs clear, normal breath sounds Abdomen: normal bowel sounds, non tender, soft Extremities: normal inspection Edema: no edema noted Arm (L), no edema noted Arm (R), no edema noted Leg (L), no edema noted Leg (R), no edema noted Pedal (L), no edema noted Pedal (R), no edema noted Generalized Neurologic: responsive, motor weakness Skin: normal pigmentation, warm/dry Objective left ankle sl Jose Carreno DO Jul 27, 2019 09:26
--- NOTE | 2019-07-27 11:29 | Infectious Diseases Prog Note ---
Assessment/Plan Assessment/Plan Abx: IV Vancomycin 07/25- Cefepime 07/25- Azithromycin x1 07/25 Assessment: Sepsis UTI -u/a wbc 15-20, nit +, leuk +1; ucx >100k GNR Fever - resolved Leukocytosis, Resolved -influenza sc neg -CXR: Pulmonary vascular congestion and suspected left pleural effusion. -Bcx p TODD, improving SNF resident Plan: Start Ancef #1/5 On D/C could switch to PO Keflex 500mg BID to finish the course - 07/27/19 SP IV Vancomycin #3 and Cefepime #3 -f/u cx -Monitor CBC/CMP, temperatures -aspiration precautions Thank you for this consultation. Will continue to follow along with you. Subjective Allergies: Coded Allergies: No Known Allergies (Unverified , 07/25/19) Subjective Afebrile Leukocytosis resolved Objective Vital Signs Last 24 Hour Vital Signs Date Time Temp Pulse Resp B/P (MAP) Pulse Ox O2 Delivery O2 Flow Rate FiO2 07/27/19 09:00 Nasal Cannula 2.0 07/27/19 04:00 98.6 96 106/68 (81) 07/27/19 00:00 98.3 102 124/86 (99) 07/26/19 21:09 99 20 94 Room Air 21 07/26/19 21:03 94 Room Air 21 07/26/19 21:00 Nasal Cannula 2.0 07/26/19 20:00 98.2 98 130/74 (92) 07/26/19 16:00 88 07/26/19 12:00 81 Height (Feet): 5 Height (Inches): 4.00 Weight (Pounds): 130 Objective General Appearance: NAD Head: normocephalic, atraumatic, MMM, EOMI Respiratory: chest non-tender, crackles, speaking full sentences Cardiovascular : regular rate, rhythm, no edema Gastrointestinal: normal bowel sounds, non tender, soft, non-distended Microbiology Date/Time Source Procedure Growth Status 07/25/19 17:45 Blood Blood Culture - Preliminary NO GROWTH AFTER 24 HOURS Resulted 07/25/19 17:30 Blood Blood Culture - Preliminary NO GROWTH AFTER 24 HOURS Resulted 07/25/19 12:50 Blood Blood Culture - Preliminary NO GROWTH AFTER 24 HOURS Resulted 07/25/19 12:15 Blood Blood Culture - Preliminary NO GROWTH AFTER 24 HOURS Resulted 07/25/19 12:50 Nasal Nares - Final Complete 07/25/19 12:50 Nasal Nares - Final Complete 07/25/19 13:40 Urine,Clean Catch Urine Culture - Final Klebsiella Pneumoniae Complete 07/25/19 13:30 Rectum Received Laboratory Tests Test 07/27/19 06:22 White Blood Count 7.5 K/UL (4.8-10.8) Red Blood Count 5.05 M/UL (4.20-5.40) Hemoglobin 14.3 G/DL (12.0-16.0) Hematocrit 42.7 % (37.0-47.0) Mean Corpuscular Volume 85 FL (80-99) Mean Corpuscular Hemoglobin 28.3 PG (27.0-31.0) Mean Corpuscular Hemoglobin Concent 33.4 G/DL (32.0-36.0) Red Cell Distribution Width 13.4 % (11.6-14.8) Platelet Count 186 K/UL (150-450) Mean Platelet Volume 6.8 FL (6.5-10.1) Neutrophils (%) (Auto) 68.5 % (45.0-75.0) Lymphocytes (%) (Auto) 18.7 % (20.0-45.0) L Monocytes (%) (Auto) 9.2 % (1.0-10.0) Eosinophils (%) (Auto) 3.1 % (0.0-3.0) H Basophils (%) (Auto) 0.5 % (0.0-2.0) Sodium Level 142 MMOL/L (136-145) Potassium Level 3.6 MMOL/L (3.5-5.1) Chloride Level 107 MMOL/L (98-107) Carbon Dioxide Level 27 MMOL/L (21-32) Anion Gap 8 mmol/L (5-15) Blood Urea Nitrogen 16 mg/dL (7-18) Creatinine 0.8 MG/DL (0.55-1.30) Estimat Glomerular Filtration Rate mL/min (>60) Glucose Level 107 MG/DL (74-106) H Calcium Level 8.8 MG/DL (8.5-10.1) Total Bilirubin 0.3 MG/DL (0.2-1.0) Aspartate Amino Transf (AST/SGOT) 16 U/L (15-37) Alanine Aminotransferase (ALT/SGPT) 20 U/L (12-78) Alkaline Phosphatase 93 U/L (46-116) Pro-B-Type Natriuretic Peptide 269 pg/mL (0-125) H Total Protein 7.0 G/DL (6.4-8.2) Albumin 2.8 G/DL (3.4-5.0) L Globulin 4.2 g/dL Albumin/Globulin Ratio 0.7 (1.0-2.7) L Current Medications Medications (Trade) Dose Ordered Sig/Katelynn Route PRN Reason Start Time Stop Time Status Last Admin Dose Admin Acetaminophen (Tylenol) 650 mg Q4H PRN ORAL T>100.5 07/26/19 19:00 08/24/19 18:59 Albuterol/ Ipratropium (Albuterol/ Ipratropium) 3 ml Q4H PRN HHN Shortness of Breath 07/26/19 19:00 07/30/19 18:59 Cefepime HCl 2 gm/ Dextrose 110 ml @ 220 mls/hr Q24H IV 07/26/19 21:00 08/01/19 20:59 07/26/19 20:55 Heparin Sodium (Porcine) (Heparin 5000 units/ml) 5,000 units EVERY 12 HOURS SUBQ 07/26/19 21:00 08/24/19 20:59 07/27/19 08:24 Morphine Sulfate (Morphine Sulfate) 2 mg Q4H PRN IVP PAIN 4-10 07/26/19 19:00 08/01/19 18:59 Ondansetron HCl (Zofran) 4 mg Q6H PRN IVP Nausea & Vomiting 07/26/19 19:00 08/24/19 18:59 Polyethylene Glycol (Miralax) 17 gm DAILYPRN PRN ORAL Constipation 07/27/19 19:00 08/24/19 18:59 Temazepam (Restoril) 15 mg HSPRN PRN ORAL Insomnia 07/26/19 21:00 08/01/19 20:59 Vancomycin HCl (Vanco rx to dose) 1 ea DAILY PRN MISC . 07/26/19 19:00 08/25/19 18:59 Vancomycin HCl 750 mg/Sodium Chloride 275 ml @ 183.333 mls/hr Q24H IVPB 07/26/19 18:00 07/31/19 17:59 07/27/19 00:28 José Klein MD Jul 27, 2019 11:29
--- NOTE | 2019-07-27 13:26 | Pulmonology Progress Note ---
Assessment/Plan Problems: (1) Sepsis (2) Pleural effusion (3) History of cerebrovascular accident (4) Alzheimer's dementia (5) Past use of tobacco Assessment/Plan wbc better boyd culture iv abx check wbc electrolytes US of chest pending respiratory treatment symptomatic treatment dvt prophylaxis. Subjective ROS Limited/Unobtainable: No Interval Events: doing better Allergies: Coded Allergies: No Known Allergies (Unverified , 07/25/19) Objective Last 24 Hour Vital Signs Date Time Temp Pulse Resp B/P (MAP) Pulse Ox O2 Delivery O2 Flow Rate FiO2 07/27/19 09:00 Nasal Cannula 2.0 07/27/19 04:00 98.6 96 106/68 (81) 07/27/19 00:00 98.3 102 124/86 (99) 07/26/19 21:09 99 20 94 Room Air 21 07/26/19 21:03 94 Room Air 21 07/26/19 21:00 Nasal Cannula 2.0 07/26/19 20:00 98.2 98 130/74 (92) 07/26/19 16:00 88 Intake and Output 07/26/19 07/27/19 18:59 06:59 Intake Total 300 ml 40 ml Output Total 600 ml 800 ml Balance -300 ml -760 ml Intake Oral 300 ml Other 40 ml Output Urine Total 600 ml 800 ml # Voids 1 # Bowel Movements 3 1 General Appearance: WD/WN HEENT: normocephalic, atraumatic Respiratory/Chest: chest wall non-tender, lungs clear Breasts: no masses Cardiovascular: regular rhythm Abdomen: normal bowel sounds, no organomegaly, no scars Extremities: no clubbing Skin: no rash Microbiology Date/Time Source Procedure Growth Status 07/25/19 17:45 Blood Blood Culture - Preliminary NO GROWTH AFTER 24 HOURS Resulted 07/25/19 17:30 Blood Blood Culture - Preliminary NO GROWTH AFTER 24 HOURS Resulted 07/25/19 12:50 Blood Blood Culture - Preliminary NO GROWTH AFTER 24 HOURS Resulted 07/25/19 12:15 Blood Blood Culture - Preliminary NO GROWTH AFTER 24 HOURS Resulted 07/25/19 12:50 Nasal Nares - Final Complete 07/25/19 12:50 Nasal Nares - Final Complete 07/25/19 13:40 Urine,Clean Catch Urine Culture - Final Klebsiella Pneumoniae Complete 07/25/19 13:30 Rectum Received Laboratory Tests 07/27/19 06:22: White Blood Count 7.5, Red Blood Count 5.05, Hemoglobin 14.3, Hematocrit 42.7, Mean Corpuscular Volume 85, Mean Corpuscular Hemoglobin 28.3, Mean Corpuscular Hemoglobin Concent 33.4, Red Cell Distribution Width 13.4, Platelet Count 186, Mean Platelet Volume 6.8, Neutrophils (%) (Auto) 68.5, Lymphocytes (%) (Auto) 18.7L, Monocytes (%) (Auto) 9.2, Eosinophils (%) (Auto) 3.1H, Basophils (%) ( Auto) 0.5, Sodium Level 142, Potassium Level 3.6, Chloride Level 107, Carbon Dioxide Level 27, Anion Gap 8, Blood Urea Nitrogen 16, Creatinine 0.8, Estimat Glomerular Filtration Rate , Glucose Level 107H, Calcium Level 8.8, Total Bilirubin 0.3, Aspartate Amino Transf (AST/SGOT) 16, Alanine Aminotransferase ( ALT/SGPT) 20, Alkaline Phosphatase 93, Pro-B-Type Natriuretic Peptide 269H, Total Protein 7.0, Albumin 2.8L, Globulin 4.2, Albumin/Globulin Ratio 0.7L Current Medications Medications (Trade) Dose Ordered Sig/Katelynn Route PRN Reason Start Time Stop Time Status Last Admin Dose Admin Acetaminophen (Tylenol) 650 mg Q4H PRN ORAL T>100.5 07/26/19 19:00 08/24/19 18:59 Albuterol/ Ipratropium (Albuterol/ Ipratropium) 3 ml Q4H PRN HHN Shortness of Breath 07/26/19 19:00 07/30/19 18:59 Cefazolin Sodium 1 gm/Sodium Chloride 55 ml @ 110 mls/hr EVERY 8 HOURS IVP 07/27/19 14:00 08/03/19 13:59 Heparin Sodium (Porcine) (Heparin 5000 units/ml) 5,000 units EVERY 12 HOURS SUBQ 07/26/19 21:00 08/24/19 20:59 07/27/19 08:24 Morphine Sulfate (Morphine Sulfate) 2 mg Q4H PRN IVP PAIN 4-10 07/26/19 19:00 08/01/19 18:59 Ondansetron HCl (Zofran) 4 mg Q6H PRN IVP Nausea & Vomiting 07/26/19 19:00 08/24/19 18:59 Polyethylene Glycol (Miralax) 17 gm DAILYPRN PRN ORAL Constipation 07/27/19 19:00 08/24/19 18:59 Temazepam (Restoril) 15 mg HSPRN PRN ORAL Insomnia 07/26/19 21:00 08/01/19 20:59 Alec Glasgow MD Jul 27, 2019 13:26
[2019-07-27] MEDS: ceFAZolin sod 1 GM in NS 55 ML IVP SCH ×2 (13:31→21:08)
--- NOTE | 2019-07-27 13:49 | NUR ---
RADIOLOGY DEPT., CHEST X-RAY DONE BY KIARRA PRYOR
--- NOTE | 2019-07-27 15:19 | Diagnostic Imaging Report ---
Indication: Abnormal chest radiograph with suspected pleural effusion, history of shortness of breath Technique: Grayscale images of the bilateral hemithoraces Comparison: Chest radiograph dated 07/25/2019 Findings: No pleural effusion demonstrated on either side Impression: Negative for evidence of pleural effusion
--- NOTE | 2019-07-27 15:36 | Diagnostic Imaging Report ---
Indication: Cough Technique: One view of the chest Comparison: 07/25/2019 Findings: There is minimal obscuration of the left costophrenic sulcus. The remainder the lungs and pleural spaces are clear. The heart is borderline enlarged. The aorta is tortuous and calcified. Previously noted congestive changes have improved Impression: Minimally obscured left costal phrenic sulcus, probably due to prominent pericardial fat or other soft tissue opacity has recent sonogram than the straight no pleural fluid or evident Interim improvement of previously demonstrated interstitial congestion, minimal to no residual
[2019-07-27 16:00] VITALS: BP 145/75
--- NOTE | 2019-07-27 16:34 | NUR ---
SPEECH PATHOLOGY: BEDSIDE SWALLOW EVALUATION COMPLETED POST CHART REVIEW AND INTERVIEW WITH RN DAVID DYSPHAGIA RISK FACTORS: HX OF TIA, DECREASED MENTATION/DEMENTIA, HX OF CVA, SHORTNESS OF BREATH PATIENT RESIDENT OF SNF WHERE SHE WAS ON A MODIFIED TEXTURE DIET. SHE WAS ADMITTED WITH DX OF SHORTNESS OF BREATH, SEPSIS INITIAL IMPRESSION: PATIENT PRESENTS WITH GROSSLY INTACT OROPHARYNGEAL PHASE OF SWALLOW. NO SHORTNESS OF BREATH OBSERVED DURING NOON MEAL TODAY. NO OVERT S/S OF ASPIRATION WITH P.O. TRIALS OF PUREE, THIN, SOFT CHEWABLE SOLIDS. RECOMMENDATION: PATIENT PRESENTS SAFE TO CONTINUE CURRENT DIET. NO FURTHER SKILLED ST SERVICES APPEAR TO BE NEEDED AT THIS TIME. THANK YOU FOR THIS REFERRAL.
[2019-07-27] MEDS ORDERED: Miralax 17gm pkt ORAL PRN (19:00)
--- NOTE | 2019-07-27 19:27 | NUR ---
HAND-OFF: Report given to ARJUN Whatley.
--- NOTE | 2019-07-27 20:07 | NUR ---
NURSE NOTES: Received patient in bed, awake, alert, oriented x2/3, able to verbalize her needs, Navarro catheter is in place, draining well, IV site is clean dry and intact. Call light is within reach, bed is in low position, locked and alarm is on, will continue to monitor for comfort and safety.
[2019-07-27 20:43] VITALS: BP 150/89
[2019-07-28] MEDS: ceFAZolin sod 1 GM in NS 55 ML IVP SCH ×3 (05:11→21:30)
--- NOTE | 2019-07-28 07:06 | NUR ---
HAND-OFF: Report given to Ashley DÍAZ.
[2019-07-28 07:26] LABS: BASOPHILS % (AUTO) 0.7 % (0.0-2.0); EOSINOPHILS % (AUTO) 4.7 % (0.0-3.0); HEMATOCRIT 42.3 % (37.0-47.0); HEMOGLOBIN 13.8 G/DL (12.0-16.0); LYMPHOCYTES % (AUTO) 27.1 % (20.0-45.0); MEAN CORPUSCULAR VOLUME 85 FL (80-99); MONOCYTES % (AUTO) 9.4 % (1.0-10.0); NEUTROPHILS % (AUTO) 58.1 % (45.0-75.0); PLATELET COUNT 208 K/UL (150-450); RED BLOOD COUNT 5.01 M/UL (4.20-5.40); RED CELL DISTRIBUTION WIDTH 13.4 % (11.6-14.8); WHITE BLOOD COUNT 6.2 K/UL (4.8-10.8)
[2019-07-28 07:37] LABS: ANION GAP 5 mmol/L (5-15); BLOOD UREA NITROGEN 13 mg/dL (7-18); CALCIUM 8.9 MG/DL (8.5-10.1); CARBON DIOXIDE 30 MMOL/L (21-32); CHLORIDE 108 MMOL/L (98-107); CREATININE 0.8 MG/DL (0.55-1.30); POTASSIUM 3.5 MMOL/L (3.5-5.1); SODIUM 143 MMOL/L (136-145)
--- NOTE | 2019-07-28 07:37 | NUR ---
NURSE NOTES: Patient aware, alert x2, confused; on Nasal Cannula 2 Liter, no sign of distress and shortness of breath; no sing of chest pain; IV Bstip-Wmr-Gut 20G TKO; Navarro in place, drains yellow urine; Left Lower Leg cellulites; side rails up x2, breaks engaged, bed at lowest position; call light within reach; will keep monitoring.
[2019-07-28 08:00] VITALS: BP 167/84
[2019-07-28] MEDS: Heparin 5000 units/ml inj SUBQ SCH ×2 (08:29→21:31)
--- NOTE | 2019-07-28 10:28 | Infectious Diseases Prog Note ---
Assessment/Plan Assessment/Plan Abx: IV Vancomycin 07/25- Cefepime 07/25- Azithromycin x1 07/25 Assessment: Sepsis UTI -u/a wbc 15-20, nit +, leuk +1; ucx >100k GNR Fever - resolved Leukocytosis, Resolved -influenza sc neg -CXR: Pulmonary vascular congestion and suspected left pleural effusion. -Bcx p TODD, improving SNF resident Plan: Start Ancef #2/7 On D/C could switch to PO Keflex 500mg BID to finish the course - 07/27/19 SP IV Vancomycin #3 and Cefepime #3 -f/u cx -Monitor CBC/CMP, temperatures -aspiration precautions Thank you for this consultation. Will continue to follow along with you. Subjective Allergies: Coded Allergies: No Known Allergies (Unverified , 07/25/19) Subjective Afebrile No Leukocytosis Objective Vital Signs Last 24 Hour Vital Signs Date Time Temp Pulse Resp B/P (MAP) Pulse Ox O2 Delivery O2 Flow Rate FiO2 07/28/19 09:00 Nasal Cannula 2.0 07/28/19 08:12 96 Nasal Cannula 2.0 28 07/28/19 08:00 97.9 87 19 167/84 (111) 97 07/27/19 21:29 Nasal Cannula 2.0 07/27/19 20:43 97.7 92 20 150/89 (109) 97 07/27/19 20:42 85 18 95 Nasal Cannula 2.0 28 07/27/19 20:42 95 Nasal Cannula 2.0 28 07/27/19 16:00 97.2 85 19 145/75 (98) 94 85 Height (Feet): 5 Height (Inches): 4.00 Weight (Pounds): 130 Objective General Appearance: NAD Head: normocephalic, atraumatic, MMM, EOMI Respiratory: chest non-tender, crackles, speaking full sentences Cardiovascular : regular rate, rhythm, no edema Gastrointestinal: normal bowel sounds, non tender, soft, non-distended Ext Left lower ext with cellulitis( Slowly improving) Microbiology Date/Time Source Procedure Growth Status 07/25/19 17:45 Blood Blood Culture - Preliminary NO GROWTH AFTER 48 HOURS Resulted 07/25/19 17:30 Blood Blood Culture - Preliminary NO GROWTH AFTER 48 HOURS Resulted 07/25/19 12:50 Blood Blood Culture - Preliminary NO GROWTH AFTER 48 HOURS Resulted 07/25/19 12:15 Blood Blood Culture - Preliminary NO GROWTH AFTER 48 HOURS Resulted 07/25/19 13:30 Nasal Nares MRSA Culture - Final NO METHICILLIN RESISTANT STAPH AUREUS... Complete 07/25/19 12:50 Nasal Nares - Final Complete 07/25/19 12:50 Nasal Nares - Final Complete 07/25/19 13:40 Urine,Clean Catch Urine Culture - Final Klebsiella Pneumoniae Complete 07/25/19 13:30 Rectum - Final NO CARBAPENEM-RESISTANT ENTEROBACTERI... Complete 07/25/19 13:30 Rectum VRE Culture - Final NO VANCOMYCIN RESISTANT ENTEROCOCCUS ... Complete Laboratory Tests Test 07/28/19 05:40 White Blood Count 6.2 K/UL (4.8-10.8) Red Blood Count 5.01 M/UL (4.20-5.40) Hemoglobin 13.8 G/DL (12.0-16.0) Hematocrit 42.3 % (37.0-47.0) Mean Corpuscular Volume 85 FL (80-99) Mean Corpuscular Hemoglobin 27.5 PG (27.0-31.0) Mean Corpuscular Hemoglobin Concent 32.5 G/DL (32.0-36.0) Red Cell Distribution Width 13.4 % (11.6-14.8) Platelet Count 208 K/UL (150-450) Mean Platelet Volume 6.3 FL (6.5-10.1) L Neutrophils (%) (Auto) 58.1 % (45.0-75.0) Lymphocytes (%) (Auto) 27.1 % (20.0-45.0) Monocytes (%) (Auto) 9.4 % (1.0-10.0) Eosinophils (%) (Auto) 4.7 % (0.0-3.0) H Basophils (%) (Auto) 0.7 % (0.0-2.0) Sodium Level 143 MMOL/L (136-145) Potassium Level 3.5 MMOL/L (3.5-5.1) Chloride Level 108 MMOL/L (98-107) H Carbon Dioxide Level 30 MMOL/L (21-32) Anion Gap 5 mmol/L (5-15) Blood Urea Nitrogen 13 mg/dL (7-18) Creatinine 0.8 MG/DL (0.55-1.30) Estimat Glomerular Filtration Rate mL/min (>60) Glucose Level 98 MG/DL (74-106) Calcium Level 8.9 MG/DL (8.5-10.1) Current Medications Medications (Trade) Dose Ordered Sig/Katelynn Route PRN Reason Start Time Stop Time Status Last Admin Dose Admin Acetaminophen (Tylenol) 650 mg Q4H PRN ORAL T>100.5 07/26/19 19:00 08/24/19 18:59 Albuterol/ Ipratropium (Albuterol/ Ipratropium) 3 ml Q4H PRN HHN Shortness of Breath 07/26/19 19:00 07/30/19 18:59 Cefazolin Sodium 1 gm/Sodium Chloride 55 ml @ 110 mls/hr EVERY 8 HOURS IVP 07/27/19 14:00 08/03/19 13:59 07/28/19 05:11 Heparin Sodium (Porcine) (Heparin 5000 units/ml) 5,000 units EVERY 12 HOURS SUBQ 07/26/19 21:00 08/24/19 20:59 07/28/19 08:29 Morphine Sulfate (Morphine Sulfate) 2 mg Q4H PRN IVP PAIN 4-10 07/26/19 19:00 08/01/19 18:59 Ondansetron HCl (Zofran) 4 mg Q6H PRN IVP Nausea & Vomiting 07/26/19 19:00 08/24/19 18:59 Polyethylene Glycol (Miralax) 17 gm DAILYPRN PRN ORAL Constipation 07/27/19 19:00 08/24/19 18:59 Temazepam (Restoril) 15 mg HSPRN PRN ORAL Insomnia 07/26/19 21:00 08/01/19 20:59 José Klein MD Jul 28, 2019 10:28
--- NOTE | 2019-07-28 11:53 | Pulmonology Progress Note ---
Assessment/Plan Problems: (1) Sepsis (2) HTN (hypertension) (3) Pleural effusion (4) History of cerebrovascular accident (5) Alzheimer's dementia (6) Past use of tobacco Assessment/Plan wbc better boyd culture iv abx check wbc, WNL electrolytes US of chest: Impression: Negative for evidence of pleural effusion respiratory treatment symptomatic treatment dvt prophylaxis. Subjective ROS Limited/Unobtainable: No Interval Events: no new complains Allergies: Coded Allergies: No Known Allergies (Unverified , 07/25/19) Objective Last 24 Hour Vital Signs Date Time Temp Pulse Resp B/P (MAP) Pulse Ox O2 Delivery O2 Flow Rate FiO2 07/28/19 09:00 Nasal Cannula 2.0 07/28/19 08:12 96 Nasal Cannula 2.0 28 07/28/19 08:00 97.9 87 19 167/84 (111) 97 07/27/19 21:29 Nasal Cannula 2.0 07/27/19 20:43 97.7 92 20 150/89 (109) 97 07/27/19 20:42 85 18 95 Nasal Cannula 2.0 28 07/27/19 20:42 95 Nasal Cannula 2.0 28 07/27/19 16:00 97.2 85 19 145/75 (98) 94 85 Intake and Output 07/27/19 07/28/19 19:00 07:00 Intake Total 1710 ml Output Total 800 ml Balance 910 ml Intake Oral 1600 ml IV Total 110 ml Output Urine Total 800 ml # Bowel Movements 1 1 General Appearance: WD/WN HEENT: normocephalic, atraumatic Respiratory/Chest: chest wall non-tender, lungs clear, chest wall tender Cardiovascular: normal rate, no JVD Microbiology Date/Time Source Procedure Growth Status 07/25/19 17:45 Blood Blood Culture - Preliminary NO GROWTH AFTER 48 HOURS Resulted 07/25/19 17:30 Blood Blood Culture - Preliminary NO GROWTH AFTER 48 HOURS Resulted 07/25/19 12:50 Blood Blood Culture - Preliminary NO GROWTH AFTER 48 HOURS Resulted 07/25/19 12:15 Blood Blood Culture - Preliminary NO GROWTH AFTER 48 HOURS Resulted 07/25/19 13:30 Nasal Nares MRSA Culture - Final NO METHICILLIN RESISTANT STAPH AUREUS... Complete 07/25/19 12:50 Nasal Nares - Final Complete 07/25/19 12:50 Nasal Nares - Final Complete 07/25/19 13:40 Urine,Clean Catch Urine Culture - Final Klebsiella Pneumoniae Complete 07/25/19 13:30 Rectum - Final NO CARBAPENEM-RESISTANT ENTEROBACTERI... Complete 07/25/19 13:30 Rectum VRE Culture - Final NO VANCOMYCIN RESISTANT ENTEROCOCCUS ... Complete Laboratory Tests 07/28/19 05:40: White Blood Count 6.2, Red Blood Count 5.01, Hemoglobin 13.8, Hematocrit 42.3, Mean Corpuscular Volume 85, Mean Corpuscular Hemoglobin 27.5, Mean Corpuscular Hemoglobin Concent 32.5, Red Cell Distribution Width 13.4, Platelet Count 208, Mean Platelet Volume 6.3L, Neutrophils (%) (Auto) 58.1, Lymphocytes (%) (Auto) 27.1, Monocytes (%) (Auto) 9.4, Eosinophils (%) (Auto) 4.7H, Basophils (%) (Auto ) 0.7, Sodium Level 143, Potassium Level 3.5, Chloride Level 108H, Carbon Dioxide Level 30, Anion Gap 5, Blood Urea Nitrogen 13, Creatinine 0.8, Estimat Glomerular Filtration Rate , Glucose Level 98, Calcium Level 8.9 Current Medications Medications (Trade) Dose Ordered Sig/Katelynn Route PRN Reason Start Time Stop Time Status Last Admin Dose Admin Acetaminophen (Tylenol) 650 mg Q4H PRN ORAL T>100.5 07/26/19 19:00 08/24/19 18:59 Albuterol/ Ipratropium (Albuterol/ Ipratropium) 3 ml Q4H PRN HHN Shortness of Breath 07/26/19 19:00 07/30/19 18:59 Cefazolin Sodium 1 gm/Sodium Chloride 55 ml @ 110 mls/hr EVERY 8 HOURS IVP 07/27/19 14:00 08/03/19 13:59 07/28/19 05:11 Heparin Sodium (Porcine) (Heparin 5000 units/ml) 5,000 units EVERY 12 HOURS SUBQ 07/26/19 21:00 08/24/19 20:59 07/28/19 08:29 Morphine Sulfate (Morphine Sulfate) 2 mg Q4H PRN IVP PAIN 4-10 07/26/19 19:00 08/01/19 18:59 Ondansetron HCl (Zofran) 4 mg Q6H PRN IVP Nausea & Vomiting 07/26/19 19:00 08/24/19 18:59 Polyethylene Glycol (Miralax) 17 gm DAILYPRN PRN ORAL Constipation 07/27/19 19:00 08/24/19 18:59 Temazepam (Restoril) 15 mg HSPRN PRN ORAL Insomnia 07/26/19 21:00 08/01/19 20:59 Alec Glasgow MD Jul 28, 2019 11:53
[2019-07-28 12:00] VITALS: BP 152/92
--- NOTE | 2019-07-28 14:01 | General Progress Note ---
Assessment/Plan Problem List: (1) HTN (hypertension) ICD Codes: I10 - Essential (primary) hypertension SNOMED: 12660321 (2) Cellulitis of left ankle ICD Codes: L03.116 - Cellulitis of left lower limb SNOMED: 08311395484225913 (3) History of cerebrovascular accident ICD Codes: Z86.73 - Personal history of transient ischemic attack (TIA), and cerebral infarction without residual deficits SNOMED: 709890479 (4) SOB (shortness of breath) ICD Codes: R06.02 - Shortness of breath SNOMED: 330191791 (5) UTI (urinary tract infection) ICD Codes: N39.0 - Urinary tract infection, site not specified SNOMED: 12566318 Qualifiers: Qualified Codes: N39.0 - Urinary tract infection, site not specified (6) Fever ICD Codes: R50.9 - Fever, unspecified SNOMED: 650934399 Qualifiers: Qualified Codes: R50.9 - Fever, unspecified (7) Pleural effusion ICD Codes: J90 - Pleural effusion, not elsewhere classified SNOMED: 04714421 (8) Alzheimer's dementia ICD Codes: G30.9 - Alzheimer's disease, unspecified; F02.80 - Dementia in other diseases classified elsewhere without behavioral disturbance SNOMED: 72406377 (9) Past use of tobacco ICD Codes: Z87.891 - Personal history of nicotine dependence SNOMED: 534603899 (10) Sepsis ICD Codes: A41.9 - Sepsis, unspecified organism SNOMED: 76839293 Status: stable, progressing Assessment/Plan: pt diet abx cardio eval cbc bmp am aru eval dc plan Subjective Constitutional: Reports: weakness Allergies: Coded Allergies: No Known Allergies (Unverified , 07/25/19) All Systems: reviewed and negative except above Subjective sl sob sleepy Objective Last 24 Hour Vital Signs Date Time Temp Pulse Resp B/P (MAP) Pulse Ox O2 Delivery O2 Flow Rate FiO2 07/28/19 13:04 87 152/92 07/28/19 12:00 97.8 87 20 152/92 (112) 94 07/28/19 09:00 Nasal Cannula 2.0 07/28/19 08:12 96 Nasal Cannula 2.0 28 07/28/19 08:00 97.9 87 19 167/84 (111) 97 07/27/19 21:29 Nasal Cannula 2.0 07/27/19 20:43 97.7 92 20 150/89 (109) 97 07/27/19 20:42 85 18 95 Nasal Cannula 2.0 28 07/27/19 20:42 95 Nasal Cannula 2.0 28 07/27/19 16:00 97.2 85 19 145/75 (98) 94 85 Intake and Output 07/27/19 07/28/19 19:00 07:00 Intake Total 1710 ml Output Total 800 ml Balance 910 ml Intake Oral 1600 ml IV Total 110 ml Output Urine Total 800 ml # Bowel Movements 1 1 Laboratory Tests 07/28/19 05:40: White Blood Count 6.2, Red Blood Count 5.01, Hemoglobin 13.8, Hematocrit 42.3, Mean Corpuscular Volume 85, Mean Corpuscular Hemoglobin 27.5, Mean Corpuscular Hemoglobin Concent 32.5, Red Cell Distribution Width 13.4, Platelet Count 208, Mean Platelet Volume 6.3L, Neutrophils (%) (Auto) 58.1, Lymphocytes (%) (Auto) 27.1, Monocytes (%) (Auto) 9.4, Eosinophils (%) (Auto) 4.7H, Basophils (%) (Auto ) 0.7, Sodium Level 143, Potassium Level 3.5, Chloride Level 108H, Carbon Dioxide Level 30, Anion Gap 5, Blood Urea Nitrogen 13, Creatinine 0.8, Estimat Glomerular Filtration Rate , Glucose Level 98, Calcium Level 8.9 Height (Feet): 5 Height (Inches): 4.00 Weight (Pounds): 130 General Appearance: lethargic EENT: normal ENT inspection Neck: normal alignment Cardiovascular: normal peripheral pulses, normal rate, regularly irregular Respiratory/Chest: chest wall non-tender, lungs clear, normal breath sounds Abdomen: normal bowel sounds, non tender, soft Extremities: normal inspection Edema: no edema noted Arm (L), no edema noted Arm (R), no edema noted Leg (L), no edema noted Leg (R), no edema noted Pedal (L), no edema noted Pedal (R), no edema noted Generalized Neurologic: motor weakness Skin: normal pigmentation, warm/dry Objective left ankle sl Jose Carreno DO Jul 28, 2019 14:01
--- NOTE | 2019-07-28 14:48 | Cardiology Report ---
APPROVED REPORT EXAM: Two-dimensional and M-mode echocardiogram with Doppler and color Doppler. INDICATION Congestive Heart Failure M-Mode DIMENSIONS IVSd1.3 (0.7-1.1cm)Left Atrium (MM)3.6 (1.6-4.0cm) LVDd4.4 (3.5-5.6cm)Aortic Root3.4 (2.0-3.7cm) PWd1.1 (0.7-1.1cm)Aortic Cusp Exc.1.8 (1.5-2.0cm) IVSs1.6 cmEPSS1.0 (>1.0cm) LVDs2.6 (2.5-4.0cm) PWs1.6 cm <Conclusion> Technically difficult study due to poor acoustic windows. Study quality precludes accurate assessment of regional wall motion. Normal left ventricular chamber size, systolic function and wall motion. Left ventricular ejection fraction estimated to be 55 %. Mild left ventricular hypertrophy. Anterior Echo-free space, may be due to pericardial fat or effusion. All other cardiac chamber sizes are within normal limits. Focal aortic valve sclerosis with adequate cusp excursion. Thickened mitral valve leaflets with normal excursion. Mitral annulus and aortic root calcification. Pulmonic valve not well visualized. Normal tricuspid valve structure. IVC dilated at 2.3 cm without physiological collapse. A color flow and spectral Doppler study was performed and revealed: No aortic regurgitation. Mild mitral regurgitation. Mitral diastolic velocities suggest mild left ventricular diastolic dysfunction (Grade I). Trace tricuspid regurgitation. Tricuspid systolic velocities suggests peak right ventricular systolic pressure of 28 mmHg. No pulmonic regurgitation present.
[2019-07-28 16:00] VITALS: BP 142/82
--- NOTE | 2019-07-28 19:26 | NUR ---
HAND-OFF: Report given to ARJUN Cao.
--- NOTE | 2019-07-28 19:42 | NUR ---
NURSE NOTES: Patient is in bed, aware, alert x2, confused. Breathing on Nasal Cannula 2 Liter, no sign of distress and shortness of breath; no sing of chest pain; IV site intact and asymptomatic. F/c patent and drains yellow urine; noted Left Lower Leg cellulites; Bed in low and locked position. Call light within reach; will continue to monitoring the pt
[2019-07-29 04:54] VITALS: BP 147/81
[2019-07-29 06:33] LABS: BASOPHILS % (AUTO) 1.3 % (0.0-2.0); HEMATOCRIT 44.5 % (37.0-47.0); HEMOGLOBIN 14.6 G/DL (12.0-16.0); LYMPHOCYTES % (AUTO) 27.7 % (20.0-45.0); MEAN CORPUSCULAR VOLUME 84 FL (80-99); MONOCYTES % (AUTO) 8.8 % (1.0-10.0); NEUTROPHILS % (AUTO) 56.2 % (45.0-75.0); PLATELET COUNT 216 K/UL (150-450); RED BLOOD COUNT 5.28 M/UL (4.20-5.40)
[2019-07-29] MEDS: ceFAZolin sod 1 GM in NS 55 ML IVP SCH ×3 (06:46→21:32)
[2019-07-29 07:01] LABS: ANION GAP 8 mmol/L (5-15); BLOOD UREA NITROGEN 16 mg/dL (7-18); CARBON DIOXIDE 28 MMOL/L (21-32); CHLORIDE 107 MMOL/L (98-107); CREATININE 0.7 MG/DL (0.55-1.30); POTASSIUM 3.7 MMOL/L (3.5-5.1); SODIUM 142 MMOL/L (136-145)
--- NOTE | 2019-07-29 07:21 | NUR ---
HAND-OFF: Report given to ARJUN Hassan.
--- NOTE | 2019-07-29 07:27 | NUR ---
NURSE NOTES: Patient awake, alert x2, confused; on nasal cannula 2 Liter, no sing of distress and shortness of breath; no sing of chest pain; IV Right For-Arm 20G TKO; Navarro in place, drains urine well; side rails up x2, breaks engaged, bed at lowest position; call light within reach; will keep monitoring.
[2019-07-29 08:00] VITALS: BP 141/80
[2019-07-29] MEDS: Heparin 5000 units/ml inj SUBQ SCH ×2 (08:32→21:32)
[2019-07-29 11:49] VITALS: BP 146/89
[2019-07-29 12:00] VITALS: BP 141/89
--- NOTE | 2019-07-29 13:48 | Pulmonology Progress Note ---
Assessment/Plan Problems: (1) Sepsis (2) HTN (hypertension) (3) Pleural effusion (4) History of cerebrovascular accident (5) Alzheimer's dementia (6) Past use of tobacco Assessment/Plan wbc better boyd culture iv abx check wbc, WNL electrolytes US of chest: Impression: Negative for evidence of pleural effusion respiratory treatment symptomatic treatment dvt prophylaxis. Subjective ROS Limited/Unobtainable: No Constitutional: Reports: no symptoms HEENT: Repors: no symptoms Respiratory: Reports: no symptoms Allergies: Coded Allergies: No Known Allergies (Unverified , 07/25/19) Objective Last 24 Hour Vital Signs Date Time Temp Pulse Resp B/P (MAP) Pulse Ox O2 Delivery O2 Flow Rate FiO2 07/29/19 11:49 97.1 88 20 146/89 (108) 98 88 07/29/19 09:00 Nasal Cannula 2.0 07/29/19 08:35 89 141/80 07/29/19 08:00 97.2 89 19 141/80 (100) 97 89 07/29/19 04:54 97.3 83 18 147/81 (103) 97 07/28/19 21:32 85 144/87 07/28/19 21:00 Nasal Cannula 2.0 07/28/19 16:00 98.0 85 20 142/82 (102) 97 Intake and Output 07/28/19 07/29/19 19:00 07:00 Intake Total 950 ml Output Total 1000 ml 900 ml Balance -50 ml -900 ml Intake Oral 840 ml IV Total 110 ml Output Urine Total 1000 ml 900 ml # Bowel Movements 1 General Appearance: WD/WN HEENT: normocephalic Respiratory/Chest: chest wall non-tender, normal breath sounds Breasts: no masses Cardiovascular: normal peripheral pulses Abdomen: normal bowel sounds, soft, non tender Genitourinary: normal external genitalia Extremities: no clubbing Skin: no rash 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 Laboratory Tests 07/29/19 05:45: White Blood Count 6.0, Red Blood Count 5.28, Hemoglobin 14.6, Hematocrit 44.5, Mean Corpuscular Volume 84, Mean Corpuscular Hemoglobin 27.7, Mean Corpuscular Hemoglobin Concent 32.9, Red Cell Distribution Width 13.0, Platelet Count 216, Mean Platelet Volume 6.0L, Neutrophils (%) (Auto) 56.2, Lymphocytes (%) (Auto) 27.7, Monocytes (%) (Auto) 8.8, Eosinophils (%) (Auto) 6.0H, Basophils (%) (Auto ) 1.3, Sodium Level 142, Potassium Level 3.7, Chloride Level 107, Carbon Dioxide Level 28, Anion Gap 8, Blood Urea Nitrogen 16, Creatinine 0.7, Estimat Glomerular Filtration Rate , Glucose Level 112H, Calcium Level 9.0 Current Medications Medications (Trade) Dose Ordered Sig/Katelynn Route PRN Reason Start Time Stop Time Status Last Admin Dose Admin Acetaminophen (Tylenol) 650 mg Q4H PRN ORAL T>100.5 07/26/19 19:00 08/24/19 18:59 Albuterol/ Ipratropium (Albuterol/ Ipratropium) 3 ml Q4H PRN HHN Shortness of Breath 07/26/19 19:00 07/30/19 18:59 Amlodipine Besylate (Norvasc) 2.5 mg EVERY 12 HOURS ORAL 07/28/19 21:00 08/27/19 20:59 07/29/19 08:35 Cefazolin Sodium 1 gm/Sodium Chloride 55 ml @ 110 mls/hr EVERY 8 HOURS IVP 07/27/19 14:00 08/03/19 13:59 07/29/19 06:46 Heparin Sodium (Porcine) (Heparin 5000 units/ml) 5,000 units EVERY 12 HOURS SUBQ 07/26/19 21:00 08/24/19 20:59 07/29/19 08:32 Morphine Sulfate (Morphine Sulfate) 2 mg Q4H PRN IVP PAIN 4-10 07/26/19 19:00 08/01/19 18:59 Ondansetron HCl (Zofran) 4 mg Q6H PRN IVP Nausea & Vomiting 07/26/19 19:00 08/24/19 18:59 Polyethylene Glycol (Miralax) 17 gm DAILYPRN PRN ORAL Constipation 07/27/19 19:00 08/24/19 18:59 Temazepam (Restoril) 15 mg HSPRN PRN ORAL Insomnia 07/26/19 21:00 08/01/19 20:59 Alec Glasgow MD Jul 29, 2019 13:48
--- NOTE | 2019-07-29 14:05 | Infectious Diseases Prog Note ---
Assessment/Plan Assessment/Plan Abx: IV Vancomycin 07/25- Cefepime 07/25- Azithromycin x1 07/25 Assessment: Sepsis UTI -u/a wbc 15-20, nit +, leuk +1; ucx >100k GNR Fever - resolved Leukocytosis, Resolved -influenza sc neg -CXR: Pulmonary vascular congestion and suspected left pleural effusion. -Bcx p TODD, improving SNF resident Plan: Start Ancef #2/7 On D/C could switch to PO Keflex 500mg BID to finish the course - 07/27/19 SP IV Vancomycin #3 and Cefepime #3 -f/u cx -Monitor CBC/CMP, temperatures -aspiration precautions Thank you for this consultation. Will continue to follow along with you. Subjective Allergies: Coded Allergies: No Known Allergies (Unverified , 07/25/19) Subjective Afebrile No Leukocytosis YRN Objective Vital Signs Last 24 Hour Vital Signs Date Time Temp Pulse Resp B/P (MAP) Pulse Ox O2 Delivery O2 Flow Rate FiO2 07/29/19 11:49 97.1 88 20 146/89 (108) 98 88 07/29/19 09:00 Nasal Cannula 2.0 07/29/19 08:35 89 141/80 07/29/19 08:00 97.2 89 19 141/80 (100) 97 89 07/29/19 04:54 97.3 83 18 147/81 (103) 97 07/28/19 21:32 85 144/87 07/28/19 21:00 Nasal Cannula 2.0 07/28/19 16:00 98.0 85 20 142/82 (102) 97 Height (Feet): 5 Height (Inches): 4.00 Weight (Pounds): 227 Objective General Appearance: NAD Head: normocephalic, atraumatic, MMM, EOMI Respiratory: chest non-tender, crackles, speaking full sentences Cardiovascular : regular rate, rhythm, no edema Gastrointestinal: normal bowel sounds, non tender, soft, non-distended Ext Left lower ext with cellulitis( resolving) Laboratory Tests Test 07/29/19 05:45 White Blood Count 6.0 K/UL (4.8-10.8) Red Blood Count 5.28 M/UL (4.20-5.40) Hemoglobin 14.6 G/DL (12.0-16.0) Hematocrit 44.5 % (37.0-47.0) Mean Corpuscular Volume 84 FL (80-99) Mean Corpuscular Hemoglobin 27.7 PG (27.0-31.0) Mean Corpuscular Hemoglobin Concent 32.9 G/DL (32.0-36.0) Red Cell Distribution Width 13.0 % (11.6-14.8) Platelet Count 216 K/UL (150-450) Mean Platelet Volume 6.0 FL (6.5-10.1) L Neutrophils (%) (Auto) 56.2 % (45.0-75.0) Lymphocytes (%) (Auto) 27.7 % (20.0-45.0) Monocytes (%) (Auto) 8.8 % (1.0-10.0) Eosinophils (%) (Auto) 6.0 % (0.0-3.0) H Basophils (%) (Auto) 1.3 % (0.0-2.0) Sodium Level 142 MMOL/L (136-145) Potassium Level 3.7 MMOL/L (3.5-5.1) Chloride Level 107 MMOL/L (98-107) Carbon Dioxide Level 28 MMOL/L (21-32) Anion Gap 8 mmol/L (5-15) Blood Urea Nitrogen 16 mg/dL (7-18) Creatinine 0.7 MG/DL (0.55-1.30) Estimat Glomerular Filtration Rate mL/min (>60) Glucose Level 112 MG/DL (74-106) H Calcium Level 9.0 MG/DL (8.5-10.1) Current Medications Medications (Trade) Dose Ordered Sig/Katelynn Route PRN Reason Start Time Stop Time Status Last Admin Dose Admin Acetaminophen (Tylenol) 650 mg Q4H PRN ORAL T>100.5 07/26/19 19:00 08/24/19 18:59 Albuterol/ Ipratropium (Albuterol/ Ipratropium) 3 ml Q4H PRN HHN Shortness of Breath 07/26/19 19:00 07/30/19 18:59 Amlodipine Besylate (Norvasc) 2.5 mg EVERY 12 HOURS ORAL 07/28/19 21:00 08/27/19 20:59 07/29/19 08:35 Cefazolin Sodium 1 gm/Sodium Chloride 55 ml @ 110 mls/hr EVERY 8 HOURS IVP 07/27/19 14:00 08/03/19 13:59 07/29/19 06:46 Heparin Sodium (Porcine) (Heparin 5000 units/ml) 5,000 units EVERY 12 HOURS SUBQ 07/26/19 21:00 08/24/19 20:59 07/29/19 08:32 Morphine Sulfate (Morphine Sulfate) 2 mg Q4H PRN IVP PAIN 4-10 07/26/19 19:00 08/01/19 18:59 Ondansetron HCl (Zofran) 4 mg Q6H PRN IVP Nausea & Vomiting 07/26/19 19:00 08/24/19 18:59 Polyethylene Glycol (Miralax) 17 gm DAILYPRN PRN ORAL Constipation 07/27/19 19:00 08/24/19 18:59 Temazepam (Restoril) 15 mg HSPRN PRN ORAL Insomnia 07/26/19 21:00 08/01/19 20:59 José Klein MD Jul 29, 2019 14:05
--- NOTE | 2019-07-29 14:16 | NUR ---
DISCHARGE PLANNING DISCHARGE ORDER NOTED Patient has been accepted to; [facility] [address] [place] [address] Bed: 317-B Skilled [phone] for Nurse to Nurse report [facility] ETA for transportation: 13:45 Addendum: 07/29/19 at 1517 by MARISELA VEE [facility] ETA for transportation: 15:45
--- NOTE | 2019-07-29 14:57 | General Progress Note ---
Assessment/Plan Problem List: (1) HTN (hypertension) ICD Codes: I10 - Essential (primary) hypertension SNOMED: 39914026 (2) Cellulitis of left ankle ICD Codes: L03.116 - Cellulitis of left lower limb SNOMED: 15170628243869977 (3) History of cerebrovascular accident ICD Codes: Z86.73 - Personal history of transient ischemic attack (TIA), and cerebral infarction without residual deficits SNOMED: 722009249 (4) SOB (shortness of breath) ICD Codes: R06.02 - Shortness of breath SNOMED: 926050390 (5) UTI (urinary tract infection) ICD Codes: N39.0 - Urinary tract infection, site not specified SNOMED: 73197964 Qualifiers: Qualified Codes: N39.0 - Urinary tract infection, site not specified (6) Fever ICD Codes: R50.9 - Fever, unspecified SNOMED: 788946079 Qualifiers: Qualified Codes: R50.9 - Fever, unspecified (7) Pleural effusion ICD Codes: J90 - Pleural effusion, not elsewhere classified SNOMED: 68997090 (8) Alzheimer's dementia ICD Codes: G30.9 - Alzheimer's disease, unspecified; F02.80 - Dementia in other diseases classified elsewhere without behavioral disturbance SNOMED: 46142429 (9) Past use of tobacco ICD Codes: Z87.891 - Personal history of nicotine dependence SNOMED: 853142049 (10) Sepsis ICD Codes: A41.9 - Sepsis, unspecified organism SNOMED: 40443288 Status: stable, progressing Assessment/Plan: pt diet abx cardio eval dc if clear Subjective Constitutional: Reports: weakness Allergies: Coded Allergies: No Known Allergies (Unverified , 07/25/19) All Systems: reviewed and negative except above Subjective calm in bed Objective Last 24 Hour Vital Signs Date Time Temp Pulse Resp B/P (MAP) Pulse Ox O2 Delivery O2 Flow Rate FiO2 07/29/19 12:00 97.1 88 20 141/89 (106) 98 88 07/29/19 11:49 97.1 88 20 146/89 (108) 98 88 07/29/19 09:00 Nasal Cannula 2.0 07/29/19 08:35 89 141/80 07/29/19 08:00 97.2 89 19 141/80 (100) 97 89 07/29/19 04:54 97.3 83 18 147/81 (103) 97 07/28/19 21:32 85 144/87 07/28/19 21:00 Nasal Cannula 2.0 07/28/19 16:00 98.0 85 20 142/82 (102) 97 Intake and Output 07/28/19 07/29/19 19:00 07:00 Intake Total 950 ml Output Total 1000 ml 900 ml Balance -50 ml -900 ml Intake Oral 840 ml IV Total 110 ml Output Urine Total 1000 ml 900 ml # Bowel Movements 1 Laboratory Tests 07/29/19 05:45: White Blood Count 6.0, Red Blood Count 5.28, Hemoglobin 14.6, Hematocrit 44.5, Mean Corpuscular Volume 84, Mean Corpuscular Hemoglobin 27.7, Mean Corpuscular Hemoglobin Concent 32.9, Red Cell Distribution Width 13.0, Platelet Count 216, Mean Platelet Volume 6.0L, Neutrophils (%) (Auto) 56.2, Lymphocytes (%) (Auto) 27.7, Monocytes (%) (Auto) 8.8, Eosinophils (%) (Auto) 6.0H, Basophils (%) (Auto ) 1.3, Sodium Level 142, Potassium Level 3.7, Chloride Level 107, Carbon Dioxide Level 28, Anion Gap 8, Blood Urea Nitrogen 16, Creatinine 0.7, Estimat Glomerular Filtration Rate , Glucose Level 112H, Calcium Level 9.0 Height (Feet): 5 Height (Inches): 4.00 Weight (Pounds): 227 General Appearance: lethargic EENT: normal ENT inspection Neck: normal alignment Cardiovascular: normal peripheral pulses, normal rate, regular rhythm Respiratory/Chest: chest wall non-tender, lungs clear, normal breath sounds Abdomen: normal bowel sounds, non tender, soft Extremities: normal inspection Edema: no edema noted Arm (L), no edema noted Arm (R), no edema noted Leg (L), no edema noted Leg (R), no edema noted Pedal (L), no edema noted Pedal (R), no edema noted Generalized Neurologic: motor weakness Skin: normal pigmentation, warm/dry Objective left ankle sl red Jose Driver ChiChangAna Jul 29, 2019 14:57
[2019-07-29 16:02] VITALS: BP 129/70
--- NOTE | 2019-07-29 16:27 | NUR ---
NURSE NOTES: I received antibiotic order from MD Klein for patient upon discharge. Carried out as order given.
[2019-07-29] MEDS ORDERED: CEPHALEXIN500 M1 ORAL (16:31)
[2019-07-29] MEDS ORDERED: CEPHALEXIN500 MG ORAL (16:33)
[2019-07-29] MEDS ORDERED: AMLODIPINE BES2.5 MG ORAL (16:37)
[2019-07-29] MEDS ORDERED: HEPARIN SO5000 UNIT2 SUBQ (16:38)
--- NOTE | 2019-07-29 18:43 | NUR ---
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 Charge nurse, Kimberly communicated MD Glasgow and got the order for Clonidine; order carried out by Charge nurse, Kimberly; will keep monitoring.
--- NOTE | 2019-07-29 18:44 | NUR ---
NURSE NOTES: Patient's BP elevated 174/101. Dr. Glasgow notified. New order received.
[2019-07-29 18:49] VITALS: BP 173/88
--- NOTE | 2019-07-29 18:52 | NUR ---
NURSE NOTES: Clonidine 0.1 mg given, will keep monitoring patient BP.
--- NOTE | 2019-07-29 19:21 | NUR ---
HAND-OFF: Report given to ARJUN Cao.
--- NOTE | 2019-07-29 19:31 | NUR ---
NURSE NOTES: Patient awake, alert x2, confused; on nasal cannula 2 Liter, no sing of distress and shortness of breath; no sing of chest pain; IV Right For-Arm 20G TKO; Navarro in place, drains urine well; side rails up x2, breaks engaged, bed at lowest position; call light within reach; will DC to SNF when the BP is stable. will continue to monitor.
--- NOTE | 2019-07-29 20:23 | NUR ---
NURSE NOTES: Recheck BP now, it is 170/88. called and left message to Dr gonzalez regarding BP. awaiting for call back.
--- NOTE | 2019-07-29 21:17 | NUR ---
NURSE NOTES: Called dr Bey per Dr Driver's recommendation regarding high BP and received order for clonidine 0.1mg one time dose. order carried out.
--- NOTE | 2019-07-29 21:33 | NUR ---
NURSE NOTES: Administered 0.1mg clonidine [id number]. will monitor bp. Addendum: 07/29/19 at 2134 by Senait Cao RN Disregard above documentation. incorrect time.
--- NOTE | 2019-07-29 21:34 | NUR ---
NURSE NOTES: NURSE NOTES: Administered 0.1mg clonidine 2130 due to bp 170/88. will monitor bp.
[2019-07-30 00:23] VITALS: BP 158/90
--- NOTE | 2019-07-30 00:34 | NUR ---
NURSE NOTES: Unable to discharge pt due to high BP. made aware.
[2019-07-30] MEDS: ceFAZolin sod 1 GM in NS 55 ML IVP SCH (05:52)
--- NOTE | 2019-07-30 07:21 | NUR ---
HAND-OFF: Report given to ARJUN Stover.
[2019-07-30 08:00] VITALS: BP 122/89
[2019-07-30] MEDS: Heparin 5000 units/ml inj SUBQ SCH (10:13)
[2019-07-30 12:00] VITALS: BP 155/85
--- NOTE | 2019-07-30 12:13 | Pulmonology Progress Note ---
Assessment/Plan Problems: (1) Sepsis (2) HTN (hypertension) (3) Pleural effusion (4) History of cerebrovascular accident (5) Alzheimer's dementia (6) Past use of tobacco Assessment/Plan wbc better boyd culture iv abx check wbc, WNL electrolytes US of chest: Impression: Negative for evidence of pleural effusion respiratory treatment symptomatic treatment dvt prophylaxis. discharge planning Subjective ROS Limited/Unobtainable: No Constitutional: Reports: no symptoms HEENT: Repors: no symptoms Allergies: Coded Allergies: No Known Allergies (Unverified , 07/25/19) Objective Last 24 Hour Vital Signs Date Time Temp Pulse Resp B/P (MAP) Pulse Ox O2 Delivery O2 Flow Rate FiO2 07/30/19 11:59 155/85 07/30/19 10:11 77 122/89 07/30/19 09:00 Nasal Cannula 2.0 07/30/19 08:00 97.8 77 20 122/89 (100) 94 07/30/19 00:23 98.8 90 158/90 (112) 07/29/19 21:30 170/88 07/29/19 21:30 106 170/88 07/29/19 21:00 Nasal Cannula 2.0 07/29/19 18:51 173/88 07/29/19 18:49 97.0 88 20 173/88 (116) 98 88 07/29/19 16:02 97.5 88 20 129/70 (89) 98 88 Intake and Output 07/29/19 07/30/19 18:59 06:59 Intake Total 1200 ml Output Total 1200 ml 600 ml Balance 0 ml -600 ml Intake Oral 1200 ml Output Urine Total 1200 ml 600 ml General Appearance: WD/WN HEENT: normocephalic, atraumatic Respiratory/Chest: chest wall non-tender, lungs clear Breasts: no masses Cardiovascular: normal peripheral pulses Abdomen: normal bowel sounds, soft, non tender Genitourinary: normal external genitalia Skin: no rash Neurologic/Psychiatric: forensic identification specialist II-XII grossly normal Current Medications Medications (Trade) Dose Ordered Sig/Katelynn Route PRN Reason Start Time Stop Time Status Last Admin Dose Admin Acetaminophen (Tylenol) 650 mg Q4H PRN ORAL T>100.5 07/26/19 19:00 08/24/19 18:59 Albuterol/ Ipratropium (Albuterol/ Ipratropium) 3 ml Q4H PRN HHN Shortness of Breath 07/26/19 19:00 07/30/19 18:59 Amlodipine Besylate (Norvasc) 2.5 mg EVERY 12 HOURS ORAL 07/28/19 21:00 08/27/19 20:59 07/30/19 10:11 Cefazolin Sodium 1 gm/Sodium Chloride 55 ml @ 110 mls/hr EVERY 8 HOURS IVP 07/27/19 14:00 08/03/19 13:59 07/30/19 05:52 Clonidine HCl (Catapres Tab) 0.1 mg Q6H PRN ORAL For High Blood Pressure 07/29/19 18:45 08/28/19 18:44 07/30/19 11:59 Heparin Sodium (Porcine) (Heparin 5000 units/ml) 5,000 units EVERY 12 HOURS SUBQ 07/26/19 21:00 08/24/19 20:59 07/30/19 10:13 Morphine Sulfate (Morphine Sulfate) 2 mg Q4H PRN IVP PAIN 4-10 07/26/19 19:00 08/01/19 18:59 07/30/19 03:58 Ondansetron HCl (Zofran) 4 mg Q6H PRN IVP Nausea & Vomiting 07/26/19 19:00 08/24/19 18:59 Polyethylene Glycol (Miralax) 17 gm DAILYPRN PRN ORAL Constipation 07/27/19 19:00 08/24/19 18:59 Temazepam (Restoril) 15 mg HSPRN PRN ORAL Insomnia 07/26/19 21:00 08/01/19 20:59 Alec Glasgow MD Jul 30, 2019 12:13
--- NOTE | 2019-07-30 13:22 | NUR ---
RD ASSESSMENT & RECOMMENDATIONS SEE CARE ACTIVITY FOR COMPLETE ASSESSMENT DAILY ESTIMATED NEEDS: Needs based on Cardiac, pulmonary, obese 66.7kg, adj 20-25 kcals/kg 6225-9473 total kcals 1-1.5 g protein/kg 67-100 g total protein 25-30 mL/kg 6949-6289 total fluid mLs NUTRITION DIAGNOSIS: Swallowing difficulty r/t dysphagia as evidenced by h/o CVA, pharmacology associate eval w/ recs to maintain texture VOICE NETWORK ADMINISTRATOR of ms chopped diet, good intake. CURRENT DIET:Regular ms chopped PO DIET RECOMMENDATIONS: LOW NA DIET (ms chopped as per FILLING MACHINE OPERATOR) ADDITIONAL RECOMMENDATIONS: 1) Obtain a standing weight if able, Or recalibrate bed scale 2) Diet change as able to Low Na
--- NOTE | 2019-07-30 13:23 | NUR ---
NURSE NOTES: RN GAVE REPORT TO JONA, AT [facility]. [place] CATH DISCONTINUED ORDERED. IV ACCESS DISCONTINUED. BELONGINGS CHECKED AT BEDSIDE, AND $16 CARRASCO ACCOUNTED. RN CLARIFIED WITH DR TAPIA, TO RESUME HEPARIN 5,000 UNITS SUBQ Q12H ONLY IF PT WAS TAKING AT SNF PREVIOUSLY. RN CHECKED MEDICATION RECORDS FROM SNF, PT WAS NOT ON HEPARIN AT SNF. RN DISCONTINUED HEPARIN MEDICATION. PT WAS DISCHARGED WITH AMBULANCE PERSONNEL IN STABLE CONDITION.
--- NOTE | 2019-08-02 11:46 | NUR ---
CASE MANAGEMENT: CM review and clinical information (face sheet/ H&P/ER MD notes/DC summary/ progress notes) faxed to [facility] @ [phone]. # [phone].
--- NOTE | 2019-08-03 11:00 | Discharge Summary ---
Discharge Summary Discharge Summary _ DATE OF ADMISSION: 07/25/2019 DATE OF DISCHARGE: 07/30/2019 DISCHARGED BY: Dr. Driver REASON FOR ADMISSION: 74 years old female, resident of nursing home facility , sent for evaluation due to elevated blood pressure. Per channel man patient also appeared short of breath. Patient required supplemental oxygen to maintain appropriate pulse oximetry. Upon evaluation patient had low-grade fever of 100.2 and was tachycardic with heart rate 118. Blood pressure was 164/95. Laboratory work-up revealed significant leukocytosis, stable hemoglobin and hematocrit. Lactic acid within normal limits. Electrolytes stable. Troponin negative. EKG revealed sinus tachycardia , no acute ischemic changes. Urinalysis revealed presence of bacteria. Chest x-ray showed left-sided pleural effusion. Patient was continued on supplemental oxygen , started on broad-spectrum antibiotic, pancultured and admitted for further management. CONSULTANTS: pulmonary/critical care Dr. Glasgow ID specialist Dr. Rankin [facility]: Patient admitted. Lead Technician/critical care and ID specialist followed. Echocardiogram revealed preserved ejection fraction of 55% with no evidence of wall motion abnormality. Mild left ventricular hypertrophy. Right ventricular systolic pressure of 28. Mild mitral regurgitation. Patient started on empiric antibiotic as per ID specialist recommendation. Blood cultures were negative. Urine culture revealed Klebsiella pneumonia. Repeated blood cultures were negative as well. Influenza swab test was negative. Patient initially presented with leukocytosis of 21.4 which resolved in 2 days. Low-grade fevers resolved as well. Patient was on IV antibiotic , which switched to oral upon discharge to complete the course at the facility. Supplemental oxygen provided and titrated to keep oximetry above 92%. Bronchodilator therapy provided as needed. Initial chest x-ray revealed pulmonary vascular congestion with suspected left pleural effusion. Ultrasound of ther chest was ordered to evaluate degree of pleural effusion. Ultrasound revealed no evidence of pleural effusion. Repeated chest x-ray demonstrated improvement of previously demonstrated interstitial congestion . Blood pressure was managed with calcium channel steve. Clonidine was on board as needed for blood pressure spikes. Blood pressure eventually stabilized. DVT prophylaxis provided. Pain management was addressed as needed. Renal parameters electrolytes were closely monitored. Electrolytes corrected as needed. Acute kidney injury resolved after 1 L of fluids. Supportive care provided. Bowel regimen instituted. DVT prophylaxis provided . Patient clinically stabilized and was ready for discharge. FINAL DIAGNOSES: Sepsis Klebsiella pneumonia UTI Pleural effusion History of CVA Acute kidney injury Alzheimer dementia Hypertension Past smoker DISCHARGE MEDICATIONS: See Medication Reconciliation list. DISCHARGE INSTRUCTIONS: Patient was discharged to the nursing home facility. Follow up with medical doctor at the facility. I have been assigned to dictate discharge summary for this account. I was not involved in the patient's management. Marielena Goss NP Aug 03, 2019 11:00
== END 2019-07-30 13:20 | DRG 720 ==
LOC: EDBD 12:18 → EMR 13:15 → 2E 16:01 → EDBEDREQ 16:06 → 4E 07-26 18:48
DX: A41.9 Sepsis, unspecified organism (principal); N17.9 Acute kidney failure, unspecified; E46 Unspecified protein-calorie malnutrition; J90 Pleural effusion, not elsewhere classified; N39.0 Urinary tract infection, site not specified; B96.1 Klebsiella pneumoniae [K. pneumoniae] as the cause of diseases classified elsewhere; G30.9 Alzheimer's disease, unspecified; F02.80 Dementia in other diseases classified elsewhere, unspecified severity, without behavioral disturbance, psychotic disturbance, mood disturbance, and anxiety; I16.0 Hypertensive urgency; R09.02 Hypoxemia; L03.116 Cellulitis of left lower limb; Z86.73 Personal history of transient ischemic attack (TIA), and cerebral infarction without residual deficits; R07.9 Chest pain, unspecified; Z87.891 Personal history of nicotine dependence; E66.9 Obesity, unspecified; Z68.39 Body mass index [BMI] 39.0-39.9, adult
CPT/HCPCS: 36415; 71045; 76604; 80048; 80053; 81001; 81003; 83605; 83880; 84484; 85007; 85025; 86710; 87040; 87081; 87086; 87181; 93005; 93306; 94664; 96361; 96365; 96375; 99285; J7030